=== PATIENT | female | born 1925 | race Caucasian/White ===

== ENCOUNTER 2016-11-08 11:59 | Emergency (ER) | payer OTHER, MEDICARE ==
[2016-11-08 12:26] VITALS: BMI 27.6
--- NOTE | 2016-11-08 13:29 | PDOC ---
History of Present Illness - General Chief Complaint: Edema Stated Complaint: PAIN/ HIP, KNEE Time Seen by Provider: 11/08/16 13:18 History Source: Patient, Family Exam Limitations: Dementia - History of Present Illness Initial Comments: CHIEF COMPLAINT: 89 y/o afebrile female with PMH HTN, dementia BIB family for leg swelling, weakness and change in mentation. HISTORY OF PRESENT ILLNESS: The patient's son states ever time the patient has an episode of dementia she seems to have trouble walking. He states since last night she has been more confused than normal and hasn't been walking. He also admits her legs are swollen despite increasing her lasix (PCP recommended a few days ago). The patient denies all pain. The son denies fever, cough, n/v/d, CP , SOB, orthopnea, abd pain. Vital signs on arrival are within normal limits. REVIEW OF SYSTEMS: (Provided by family) GENERAL/CONSTITUTIONAL: No fever/chills. + weakness. No weight change. HEAD, EYES, EARS, NOSE AND THROAT: No change in vision. No ear pain or discharge. No sore throat. CARDIOVASCULAR: No chest pain or shortness of breath. RESPIRATORY: No cough, wheezing, or hemoptysis. GASTROINTESTINAL: No abd pain, nausea, vomiting, diarrhea. GENITOURINARY: No dysuria, frequency, or change in urination. MUSCULOSKELETAL: +swelling to legs. No neck or back pain. SKIN: No rash or easy bruising. NEUROLOGIC: +more confused than normal. No headache, vertigo, loss of consciousness, or loss of sensation. PHYSICAL EXAM: GENERAL: The patient is awake, alert, and fully oriented, in no acute distress. She is well appearing. HEAD: Normal with no signs of trauma. ENT: Pupils equal, round and reactive to light, extraocular movements intact, sclera anicteric, conjunctiva clear. Neck supple. LUNGS: Clear to auscultation bilaterally. Normal excursion. No respiratory distress or use of accessory muscles. CV: RRR, S1/S2, no MRG. Cap refill < 2 sec. ABDOMEN: Soft, non-distended, non-tender even to deep palpation, no hepatomegaly or splenomegaly, no masses. EXTREMITIES: Normal range of motion. 1+ pitting edema left LE. NEUROLOGICAL: Normal speech. CN II-XII grossly intact. Gait not assessed in the ER. No facial drooping. No slurred speech. Equal straight leg raise against resistance. Pt can count backwards from 10 to 1 without difficulty. PSYCH: Normal mood, normal affect. SKIN: Warm, dry, normal turgor, no rashes or lesions noted. Past History - Past Medical History Allergies/Adverse Reactions: Allergies Allergy/AdvReac Type Severity Reaction Status Date / Time nabumetone [From Relafen] Allergy Intermediate Rash Verified 11/08/16 12:23 celecoxib [From Celebrex] Allergy Itching Verified 11/08/16 12:23 lisinopril [From Zestril] Allergy Rash Verified 11/08/16 12:23 Home Medications: Ambulatory Orders Clonidine HCl [Catapres -] 0.2 mg PO HS 01/26/12 Rivastigmine [Exelon] 1 each TD DAILY 02/26/13 Clonidine HCl [Catapres] 0.1 mg PO ASDIR 10/03/16 Memantine HCl [Namenda Xr] 28 mg PO DAILY 10/03/16 Clonidine HCl [Catapres -] 0.2 mg PO AM 11/08/16 Potassium Chloride 10 meq PO ASDIR 11/08/16 Quetiapine Fumarate [Seroquel -] 12.5 mg PO HS 11/08/16 Anemia: No Asthma: No Cancer: No Cardiac Disorders: No CVA: No COPD: No CHF: No Dementia: Yes Diabetes: No GI Disorders: Yes (CONSTIPATION) Disorders: No HTN: Yes Hypercholesterolemia: Yes (NO MEDICATION) Liver Disease: No Seizures: No Thyroid Disease: No - Surgical History Abdominal Surgery: No Appendectomy: No Cardiac Surgery: No Cholecystectomy: No Lung Surgery: No Neurologic Surgery: No Orthopedic Surgery: Yes (RIGHT HIP THR 2012) - Psycho/Social/Smoking Cessation Hx Anxiety: No Suicidal Ideation: No Smoking History: Former smoker Have you smoked in the past 12 months: No If you are a former smoker, when did you quit?: 60 YRS Information on smoking cessation initiated: No Hx Alcohol Use: No Drug/Substance Use Hx: No Substance Use Type: None Hx Substance Use Treatment: No *Physical Exam - Vital Signs Last Vital Signs Temp Pulse Resp BP Pulse Ox 98.4 F 85 20 106/62 97 11/08/16 12:18 11/08/16 12:18 11/08/16 12:18 11/08/16 12:18 11/08/16 12:18 ED Treatment Course - LABORATORY CBC & Chemistry Diagram: 11/08/16 13:31 11/08/16 13:31 Medical Decision Making - Medical Decision Making A/P: 89 y/o female BIB family for increased confusion and LE edema. Upon examination the patient does not appear confused. Her left LE has 1+ pitting edema but family admits the swelling is improved. Will work up for infection and CHF exacerbation. Plan is as follows: 1. Labs 2. CXR 3. UA/culture CXR IMPRESSION: No evidence of pneumonia, CHF, pneumothorax, pleural effusion. BNP [address] Car and discussed all labs and CXR. He is not concerned and is in agreement with discharge to home with follow up in his office this week. Informed the patient's family of the plan and they are amenable. *DC/Admit/Observation/Transfer Diagnosis at time of Disposition: Dementia, Edema of right lower extremity - Discharge Dispostion Disposition: HOME Condition at time of disposition: Good - Referrals Referrals: Lobo Rueda MD [Primary Care Provider] - Call tomorrow - Patient Instructions Printed Discharge Instructions: DI for Alzheimer's Disease, DI for Peripheral Edema, Unilateral, DI for Dependent Edema Additional Instructions: Discharge Instructions: -Please call Dr. Car tomorrow for prompt follow up in his office -Return to the ER with any worsening or concerning symptoms
[2016-11-08 13:53] LABS: BASOPHIL 0.4 % (0-2.0); EOSINOPHIL 1.2 % (0-4.5); MCH 30.2 pg (25.7-33.7); MCHC 33.1 g/dl (32.0-36.0); MEAN CELL VOLUME 91.1 fl (80-96); MEAN PLT VOLUME 8.4 fl (7.5-11.1); NEUTROPHILS 66.9 % (42.8-82.8); PLATELET COUNT 170 K/MM3 (134-434); RDW 13.4 % (11.6-15.6); WHITE BLOOD COUNT 6.4 K/mm3 (4.0-10.0)
[2016-11-08 14:23] LABS: ALBUMIN 3.9 g/dl (3.4-5.0); BILIRUBIN,TOTAL 0.6 mg/dL (0.2-1.0); CALCIUM 8.9 mg/dL (8.5-10.1); CREATININE 1.3 mg/dL (0.55-1.02); TOT PROT 7.1 g/dl (6.4-8.2)
[2016-11-08 14:25] LABS: TROPONIN I 0.02 ng/ml (0.00-0.05)
[2016-11-08 16:33] VITALS: BP 110/70; PULSE 68; TEMP 98.5
== END 2016-11-08 16:33 | disposition home or self-care (01) ==
LOC: JER 11:59
DX: F03.90 Unspecified dementia, unspecified severity, without behavioral disturbance, psychotic disturbance, mood disturbance, and anxiety (principal); R60.0 Localized edema; I10 Essential (primary) hypertension
CPT/HCPCS: 36415; 71020-TC; 80053; 82550; 82553; 83880; 84484; 85025; 99284-25

== ENCOUNTER → 2016-12-30 | Emergency (ER) | payer OTHER, MEDICARE ==
[~2016-12-30] MED LIST: ACETAMINOPHEN INJECTION 100 ML IVPB ONE; LORAZEPAM CARPU-JECT 2 MG/ML DISP.SYRIN ONE
[2016-12-30 21:32] VITALS: BP 149/89; PULSE 90; BMI 28.9
--- NOTE | 2016-12-30 23:08 | PDOC ---
History of Present Illness - General Chief Complaint: Altered Mental Status Stated Complaint: AMS/DEMENSION Time Seen by Provider: 12/30/16 22:08 History Source: Patient, Family Exam Limitations: Dementia - History of Present Illness Initial Comments: 12/30/16 23:03 89yo Female patient w/ hx Dementia, HTN presented to ED by family c/o altered mental status. Family states that patient was threatening to call brickmason supervisor because the heat in house was to high and family was cooking her. Family also states patient not eating and drinking as usual and that her "color is off." Patient had well visit with Dr. Davison PCP this past and reported "everything was good." Denies CP, Abd pain, n/v/d, fever, back pain, diff breathing, dysuria , hematuria, rectal bleeding, rash or any other complaints at this time. Timing/Duration: 4-6 hours, getting worse Severity: moderate Modifying Factors: worse with: cold therapy, eating, immobilization, medication , movement, rest, other Associated Symptoms: denies: denies symptoms, chest pain, cough, diaphoresis, fever/chills, headaches, loss of appetite, malaise, nausea/vomiting, rash, seizure, shortness of breath, syncope, weakness, other Past History - Travel Traveled outside of the country in the last 30 days: No Close contact w/someone who was outside of country & ill: No - Past Medical History Allergies/Adverse Reactions: Allergies Allergy/AdvReac Type Severity Reaction Status Date / Time nabumetone [From Relafen] Allergy Intermediate Rash Verified 12/30/16 21:32 celecoxib [From Celebrex] Allergy Itching Verified 12/30/16 21:32 lisinopril [From Zestril] Allergy Rash Verified 12/30/16 21:32 Home Medications: Ambulatory Orders Clonidine HCl [Catapres -] 0.2 mg PO HS 01/26/12 Rivastigmine [Exelon] 1 each TD DAILY 02/26/13 Clonidine HCl [Catapres] 0.1 mg PO ASDIR 10/03/16 Memantine HCl [Namenda Xr] 28 mg PO DAILY 10/03/16 Clonidine HCl [Catapres -] 0.2 mg PO AM 11/08/16 Potassium Chloride 10 meq PO ASDIR 11/08/16 Quetiapine Fumarate [Seroquel -] 12.5 mg PO HS 11/08/16 Anemia: No Asthma: No Cancer: No Cardiac Disorders: No CVA: No COPD: No CHF: No Dementia: No (FORGETFUL) Diabetes: No GI Disorders: Yes (CONSTIPATION) Disorders: No HTN: Yes Hypercholesterolemia: Yes (NO MEDICATION) Liver Disease: No Seizures: No Thyroid Disease: No - Surgical History Abdominal Surgery: No Appendectomy: No Cardiac Surgery: No Cholecystectomy: No Lung Surgery: No Neurologic Surgery: No Orthopedic Surgery: Yes (RIGHT HIP THR 2012) - Psycho/Social/Smoking Cessation Hx Anxiety: No Suicidal Ideation: No Smoking History: Never smoked Have you smoked in the past 12 months: No If you are a former smoker, when did you quit?: 60 YRS Hx Alcohol Use: No Drug/Substance Use Hx: No Substance Use Type: None Hx Substance Use Treatment: No Review of Systems - Review of Systems Able to Perform ROS?: No (Family) Is the patient limited Liberian proficient: No Constitutional: No: Chills, Fever, Malaise, Weakness HEENTM: Yes: Ear Pain. No: Blurred Vision, Double Vision, Nose Congestion, Throat Pain, Throat Swelling, Difficulty Swallowing Cardiac (ROS): No: Chest Pain, Lightheadedness, Palpitations, Syncope, Chest Tightness ABD/GI: Yes: Poor Appetite, Poor Fluid Intake. No: Blood Streaked Bowels, Constipated, Diarrhea, Nausea, Rectal Bleeding, Vomiting, Tarry Stools, Other : Yes: Incontinence. No: Burning, Dysuria, Discharge, Frequency, Flank Pain, Hematuria, Pain, Urgency Musculoskeletal: No: Back Pain, Muscle Pain, Muscle Weakness Integumentary: Yes: Change in Color. No: Bruising, Erythema, Rash, Sweating Neurological: No: Headache, Numbness, Paresthesia, Seizure, Tingling, Tremors, Weakness All Other Systems: Reviewed and Negative *Physical Exam - Vital Signs Last Vital Signs Temp Pulse Resp BP Pulse Ox 90 18 149/89 100 12/30/16 21:27 12/30/16 21:27 12/30/16 21:27 12/30/16 21:27 - Physical Exam General Appearance: Yes: Nourished, Appropriately Dressed. No: Apparent Distress, Mild Distress, Moderate Distress, Severe Distress HEENT: positive: EOMI, JAMES, Normal ENT Inspection, Normal Voice, Symmetrical, Pharynx Normal, Hearing Decreased. negative: TMs Normal (Rt w/ Cerumen impaction), Pharyngeal Erythema, Tonsillar Exudate, Tonsillar Erythema, Nasal Congestion, Rhinorrhea, Sinus Tenderness, Hearing Grossly Normal, TM Bulging, TM Dull, TM Erythema Neck: positive: Trachea midline, Supple. negative: Rigid, Stridor, Lymphadenopathy (R), Lymphadenopathy (L) Respiratory/Chest: positive: Lungs Clear, Normal Breath Sounds. negative: Chest Tender, Respiratory Distress, Accessory Muscle Use, Labored Respiration, Rapid RR Cardiovascular: positive: Regular Rhythm, Regular Rate. negative: Edema, JVD, Murmur Gastrointestinal/Abdominal: positive: Normal Bowel Sounds, Soft, Distended. negative: Guarding, Rebound, Tenderness Musculoskeletal: positive: Normal Inspection. negative: CVA Tenderness Extremity: positive: Normal Capillary Refill, Normal Inspection, Normal Range of Motion, Pedal Edema. negative: Cyanosis, Swelling Integumentary: positive: Dry, Warm, Pale. negative: Normal Color, Erythema, Petechiae, Rash, Swelling, Bruising Neurologic: positive: interpretive program coordinator II-XII NML intact, Alert, Normal Mood/Affect, Normal Response, Motor Strength 5/5. negative: Fully Oriented (Dementia) ED Treatment Course - LABORATORY CBC & Chemistry Diagram: 12/30/16 22:38 12/30/16 22:38 - RADIOLOGY Radiology Studies Ordered: Category Date Time Status HEAD CT WITHOUT CONTRAST [CT] Stat CT Scan 12/30/16 22:25 Ordered CHEST X-RAY PORTABLE* [RAD] Stat Radiology 12/30/16 22:25 Taken *DC/Admit/Observation/Transfer Diagnosis at time of Disposition: Dementia Qualifiers: Dementia type: unspecified type Dementia behavioral disturbance: with behavioral disturbance Qualified Code(s): F03.91 - Unspecified dementia with behavioral disturbance - Discharge Dispostion Disposition: HOME Condition at time of disposition: Improved Admit: No - Patient Instructions Printed Discharge Instructions: Dementia Additional Instructions: FOLLOW UP WITH YOUR DOCTOR. CALL TO SCHEDULE APPOINTMENT FOR NEXT WEEK. RETURN IF SYMPTOMS WORSEN OR ANY CONCERNS FOR FURTHER EVALUATION. ENCOURAGE FLUID INTAKE (WATER) EVERY 2 HOURS. Print Language: LITHUANIAN Progress Note - Progress Note Progress Note: Name: Erna Neff : 1925 Sex: F Study Date & Time: 12/30/201623:55:03 Description: HEAD CT WITHOUT CONTRAST Cashiers Supervisor: ([email or web address]) Begin of Report Content Referring Physician: Janessa Ospina Patient Name: Aishwarya Umanzor THIS IS A PRELIMINARYREPORT FROM [facility] EXAM: CT brain without contrast IMAGES: 80 EXAM DATE AND TIME: 2016-12-30 23:55:03.0 REASON FOR EXAM: Altered Mental status COMPARISON: No FINDINGS: Age-related involutional changes. No bleed. No mass. No visible acute infarct. THIS DOCUMENT HAS BEEN ELECTRONICALLY SIGNED Ceferino Neal MD 12/31/2016 00:11 MALIK MRadha. Please call [facility] [phone]) with questions. FAMILY WILL TAKE PATIENT HOME. ALL LABS AND TESTING WNL.
[2016-12-30 23:13] LABS: ALBUMIN 3.5 g/dl (3.4-5.0); BILIRUBIN,TOTAL 0.6 mg/dL (0.2-1.0); CALCIUM 8.7 mg/dL (8.5-10.1); CREATININE 1.3 mg/dL (0.55-1.02); TOT PROT 6.9 g/dl (6.4-8.2)
[2016-12-30 23:15] LABS: BASOPHIL 0.5 % (0-2.0); EOSINOPHIL 2.1 % (0-4.5); MCH 30.5 pg (25.7-33.7); MCHC 33.7 g/dl (32.0-36.0); MEAN CELL VOLUME 90.4 fl (80-96); NEUTROPHILS 63.7 % (42.8-82.8); PLATELET COUNT 168 K/MM3 (134-434); RDW 13.1 % (11.6-15.6); WHITE BLOOD COUNT 5.3 K/mm3 (4.0-10.0)
[2016-12-31] LABS: URINE APPEARANCE CLEAR; URINE BILIRUBIN NEGATIVE (NEGATIVE); URINE BLOOD NEGATIVE (NEGATIVE); URINE COLOR STRAW; URINE GLUCOSE (UA) NEGATIVE (NEGATIVE); URINE KETONE NEGATIVE (NEGATIVE); URINE LEUK ESTERASE NEGATIVE (NEGATIVE); URINE NITRITE NEGATIVE (NEGATIVE); URINE PROTEIN NEGATIVE (NEGATIVE); URINE UROBILINOGEN NEGATIVE E.U./dl (0.2-1.0)
== END | disposition home or self-care (01) ==
LOC: JER 21:23
DX: F03.91 Unspecified dementia, unspecified severity, with behavioral disturbance (principal); I10 Essential (primary) hypertension
CPT/HCPCS: 36415; 70450-TC; 71010-TC; 80053; 81003; 85025; 87086; 99281-25

== ENCOUNTER 2017-02-11 17:48 | Inpatient (IN) | payer OTHER, MEDICARE ==
[2017-02-11 17:51] VITALS: BMI 24.5
--- NOTE | 2017-02-11 18:19 | PDOC ---
History of Present Illness - General History Source: Family Exam Limitations: No Limitations - History of Present Illness Initial Comments: 89 F yo with h/o dementia and HTN brought in by family members s/p fall, fever and chills. It was unwitnessed and both patient and her family are unsure whether she hit her head. Per family she did become more confused which is off her baseline mental status. Family members also noticed fungal rash in her R inguinal area and bilateral swollen legs with warmth. Denies chest pain, sob, dizziness, abd pain, n/v, urinary and bowel symptoms. Associated Symptoms: reports: fever/chills <Lobo Hylton - Last Filed: 02/11/17 18:59> <Rashad Flores - Last Filed: 02/11/17 22:06> - General Chief Complaint: Injury Stated Complaint: FALL Time Seen by Provider: 02/11/17 18:18 Past History - Travel Traveled outside of the country in the last 30 days: No - Past Medical History Anemia: No Asthma: No Cancer: No Cardiac Disorders: No CVA: No COPD: No CHF: No Dementia: Yes Diabetes: No GI Disorders: Yes (CONSTIPATION) Disorders: No HTN: Yes Hypercholesterolemia: Yes Liver Disease: No Seizures: No Thyroid Disease: No - Surgical History Abdominal Surgery: No Appendectomy: No Cardiac Surgery: No Cholecystectomy: No Lung Surgery: No Neurologic Surgery: No Orthopedic Surgery: Yes (RIGHT HIP THR 2012) - Psycho/Social/Smoking Cessation Hx Anxiety: No Suicidal Ideation: No Smoking History: Never smoked Have you smoked in the past 12 months: No If you are a former smoker, when did you quit?: 60 YRS Hx Alcohol Use: No Drug/Substance Use Hx: No Substance Use Type: None Hx Substance Use Treatment: No <Lobo Hylton - Last Filed: 02/11/17 18:59> <Rashad Flores - Last Filed: 02/11/17 22:06> - Past Medical History Allergies/Adverse Reactions: Allergies Allergy/AdvReac Type Severity Reaction Status Date / Time nabumetone [From Relafen] Allergy Intermediate Rash Verified 12/30/16 21:32 celecoxib [From Celebrex] Allergy Itching Verified 12/30/16 21:32 lisinopril [From Zestril] Allergy Rash Verified 12/30/16 21:32 Home Medications: Ambulatory Orders Clonidine HCl [Catapres -] 0.2 mg PO HS 01/26/12 Rivastigmine [Exelon] 1 each TD DAILY 02/26/13 Memantine HCl [Namenda Xr] 28 mg PO DAILY 10/03/16 Clonidine HCl [Catapres -] 0.2 mg PO AM 11/08/16 Potassium Chloride 10 meq PO ASDIR 11/08/16 Quetiapine Fumarate [Seroquel -] 12.5 mg PO HS 11/08/16 Review of Systems - Review of Systems Able to Perform ROS?: No Is the patient limited Guatemalan proficient: No <Lobo Hylton - Last Filed: 02/11/17 18:59> *Physical Exam - Vital Signs Last Vital Signs Temp Pulse Resp BP Pulse Ox 98.7 F 106 H 18 164/91 98 02/11/17 17:49 02/11/17 17:49 02/11/17 17:49 02/11/17 17:49 02/11/17 17:49 - Physical Exam General Appearance: No: Apparent Distress HEENT: positive: Other (L eye cataract) Neck: positive: Trachea midline, Supple Respiratory/Chest: positive: Lungs Clear, Normal Breath Sounds Cardiovascular: positive: Regular Rate, S1, S2, Tachycardia Gastrointestinal/Abdominal: positive: Normal Bowel Sounds, Soft. negative: Tender Extremity: positive: Tender, Swelling, Erythema Integumentary: positive: Rash (R inguinal) Neurologic: positive: Confused (off baseline) <Lobo Hylton - Last Filed: 02/11/17 18:59> - Vital Signs Last Vital Signs Temp Pulse Resp BP Pulse Ox 102.7 F H 104 H 19 159/84 98 02/11/17 18:31 02/11/17 18:31 02/11/17 18:31 02/11/17 18:31 02/11/17 18:31 <Rashad Flores - Last Filed: 02/11/17 22:06> ED Treatment Course - LABORATORY CBC & Chemistry Diagram: 02/11/17 18:40 <Lobo Hylton - Last Filed: 02/11/17 18:59> - LABORATORY CBC & Chemistry Diagram: 02/11/17 18:40 02/11/17 21:40 - ADDITIONAL ORDERS Additional order review: Laboratory Results 02/11/17 02/11/17 02/11/17 21:40 18:40 18:29 Sodium 141 Potassium 3.6 Chloride 104 Carbon Dioxide 23 D Anion Gap 14 BUN 30 H Creatinine 1.2 H Creat Clearance w eGFR 42.30 Random Glucose 130 H D Lactic Acid 1.656 Calcium 8.7 Total Bilirubin 0.9 D AST 29 D ALT 29 D Alkaline Phosphatase 84 Creatine Kinase 514 H D Troponin I 0.06 H Total Protein 7.3 Albumin 3.5 Lipase 107 Urine Color Urine Appearance Urine pH Ur Specific [place] Urine Protein Urine Glucose (UA) Urine Ketones Urine Blood Urine Nitrite Urine Bilirubin Urine Urobilinogen Ur Leukocyte Esterase Urine RBC Urine WBC Ur Epithelial Cells Urine Bacteria Urine Mucus 02/11/17 18:29 Sodium Potassium Chloride Carbon Dioxide Anion Gap BUN Creatinine Creat Clearance w eGFR Random Glucose Lactic Acid Calcium Total Bilirubin AST ALT Alkaline Phosphatase Creatine Kinase Troponin I Total Protein Albumin Lipase Urine Color Yellow Urine Appearance Clear Urine pH 6.0 Ur Specific [place] 1.019 Urine Protein 2+ H Urine Glucose (UA) Negative Urine Ketones 1+ H Urine Blood 2+ H Urine Nitrite Negative Urine Bilirubin Negative Urine Urobilinogen Negative Ur Leukocyte Esterase Negative Urine RBC 3 Urine WBC 1 Ur Epithelial Cells Rare Urine Bacteria Rare Urine Mucus Rare 02/11/17 18:40 RBC 4.65 MCV 89.2 MCHC 32.9 RDW 13.7 MPV 8.3 Neutrophils % 89.4 H D Lymphocytes % 4.8 L D Monocytes % 5.6 Eosinophils % 0.0 D Basophils % 0.2 - RADIOLOGY Radiology Studies Ordered: Category Date Time Status CERVICAL SPINE CT W/O CONTR [CT] Stat CT Scan 02/11/17 18:[address] W/O CONTRAST [CT] Stat CT Scan 02/11/17 18:[address] WITHOUT CONTRAST [CT] Stat CT Scan 02/11/17 18:50 Taken HIP & PELVIS-RIGHT [RAD] Stat Radiology 02/11/17 19:25 Taken KNEE 2 POS-RIGHT [RAD] Stat Radiology 02/11/17 19:25 Taken - Medications Given in the ED: ED Medications Discontinued Medications Generic Name Dose Route Start Last Admin Trade Name Freq PRN Reason Stop Dose Admin Acetaminophen 870 mg 02/11/17 18:51 02/11/17 18:54 Ofirmev Injection - IVPB 02/11/17 18:52 870 mg ONCE ONE Administration <Sandra,Rashad - Last Filed: 02/11/17 22:06> Medical Decision Making - Medical Decision Making 02/11/17 19:07 Will perform sepsis workup and obtain CT head without contrast due to unwitnessed fall <Lobo Hylton - Last Filed: 02/11/17 18:59> - Medical Decision Making 02/11/17 22:05 <Rashad Flores - Last Filed: 02/11/17 22:06> *DC/Admit/Observation/Transfer <Lobo Hylton - Last Filed: 02/11/17 18:59> - Discharge Dispostion Admit: Yes <Rashad Flores - Last Filed: 02/11/17 22:06> Diagnosis at time of Disposition: Acute electrocardiogram changes Dementia Qualifiers: Dementia type: Alzheimer's disease Alzheimer's disease onset: unspecified onset Dementia behavioral disturbance: with behavioral disturbance Qualified Code(s): G30.8 - Other Alzheimer's disease; F02.81 - Dementia in other diseases classified elsewhere with behavioral disturbance Sepsis Qualifiers: Sepsis type: sepsis due to unspecified organism Qualified Code(s): A41.9 - Sepsis, unspecified organism Fall Qualifiers: Encounter type: sequela Qualified Code(s): W19.XXXS - Unspecified fall, sequela - Discharge Dispostion Condition at time of disposition: Stable
[2017-02-11] MEDS ORDERED: ACETAMINOPHEN 1000 MG/100 ML VIAL (NON FORMULARY) IVPB ONE (18:51)
--- NOTE | 2017-02-11 18:51 | PDOC ---
Attending Attestation - Resident Resident Name: Lobo Hylton - ED Attending Attestation I have performed the following: I have examined & evaluated the patient, The case was reviewed & discussed with the resident, I agree w/resident's findings & plan - HPI HPI: 02/11/17 18:49 89y hx of htn, dementia presents s/p unwitnessed fall, also hx of fever. The pt was ambulating and fell, the daugther was beside the pt immediately and saw the pt was awake, no LOC, n/v. The family notes the pt felt a bit warm when the went to pick her up and the pt seem alitlte altered - asing repititive questions that she doesnt normally do. On exam the pt deneis any complaint including headache, dizziness, neck pain back pain, abd pain, cp, sob, n/v. She has no focal tenderness to anywhere on head/neck/back/torso/extremities but pt has mild pain to the R leg when i put it down after ranging it. + contusion to the L face/scalp without focal bony tenderness or crepitus. will obtain imgaing of knee/hip of R leg ct head/cspine/facialb ones sepssi workup for infectious source. +fungal rash in inguinal folds +b/l LE edema 02/11/17 19:25 02/11/17 19:26 02/11/17 22:03 labs reviewed noted for leukocytosis trop neg, but not neg - will bear repeating ua inconsistent of UTI cxr does not reveal pna will admit for further management due to new ekg changes case dw PMD agreed with observation stable for tele Case discussed in detail with admitting physician including history, physical exam and ancillary studies. Admitting physician has assumed care for the patient, will follow all pending diagnostics and will complete the evaluation and treatment. - Physicial Exam PE: 02/13/17 20:21 see above - Medical Decision Making 02/13/17 20:21 see above Heart Score/ECG Review - ECG Impressions Comment:: 02/11/17 19:42 Twelve-lead EKG was performed and reviewed by me. There is normal sinus rhythm with a rate of 101 Left axis deviation Left bundle-branch block LBBB is new when compared with ekg dated 10/03/2016
[2017-02-11 18:58] LABS: BASOPHIL 0.2 % (0-2.0); MCH 29.3 pg (25.7-33.7); MCHC 32.9 g/dl (32.0-36.0); MEAN CELL VOLUME 89.2 fl (80-96); MEAN PLT VOLUME 8.3 fl (7.5-11.1); NEUTROPHILS 89.4 % (42.8-82.8); PLATELET COUNT 170 K/MM3 (134-434); RDW 13.7 % (11.6-15.6); WHITE BLOOD COUNT 13.2 K/mm3 (4.0-10.0)
[2017-02-11 18:59] LABS: URINE APPEARANCE CLEAR; URINE BILIRUBIN NEGATIVE (NEGATIVE); URINE COLOR YELLOW; URINE GLUCOSE (UA) NEGATIVE (NEGATIVE); URINE KETONE 1+ (NEGATIVE); URINE LEUK ESTERASE NEGATIVE (NEGATIVE); URINE NITRITE NEGATIVE (NEGATIVE); URINE UROBILINOGEN NEGATIVE E.U./dl (0.2-1.0)
[2017-02-11 19:01] LABS: URINE BLOOD 2+ (NEGATIVE); URINE PROTEIN 2+ (NEGATIVE)
[2017-02-11 19:10] LABS: URINE BACTERIA RARE /hpf (NONE SEEN); URINE MUCUS RARE; URINE RBC 3 /hpf (0-3); URINE WBC 1 /hpf (3-5)
[2017-02-11 21:57] LABS: ALBUMIN 3.5 g/dl (3.4-5.0); BILIRUBIN,TOTAL 0.9 mg/dL (0.2-1.0); CALCIUM 8.7 mg/dL (8.5-10.1); COCKROFT - GAULT 29.58; CREATININE 1.2 mg/dL (0.55-1.02); TOT PROT 7.3 g/dl (6.4-8.2)
[2017-02-11 21:59] LABS: TROPONIN I 0.06 ng/ml (0.00-0.05)
[2017-02-11] MEDS ORDERED: LEVOFLOXACIN 500 MG IVPB 100 ML IVPB ONE ×2 (22:03→22:35)
[2017-02-12] MEDS ORDERED: LORAZEPAM CARPU-JECT 2 MG/ML DISP.SYRIN IVPUSH ONE ×2 (00:13→17:25)
[2017-02-12 06:11] LABS: BASOPHIL 0.2 % (0-2.0); MCH 29.6 pg (25.7-33.7); MEAN CELL VOLUME 89.6 fl (80-96); MEAN PLT VOLUME 8.6 fl (7.5-11.1); NEUTROPHILS 86.2 % (42.8-82.8); PLATELET COUNT 157 K/MM3 (134-434); RDW 13.7 % (11.6-15.6); WHITE BLOOD COUNT 11.9 K/mm3 (4.0-10.0)
[2017-02-12 06:34] LABS: ALBUMIN 3.1 g/dl (3.4-5.0); CALCIUM 8.4 mg/dL (8.5-10.1); COCKROFT - GAULT 29.58; CREATININE 1.2 mg/dL (0.55-1.02); TOT PROT 6.7 g/dl (6.4-8.2)
[2017-02-12 06:46] LABS: TROPONIN I 0.11 ng/ml (0.00-0.05)
--- NOTE | 2017-02-12 09:44 | CON.CARD ---
Consult Consult Specialty:: CARDIO Referred by:: margarito Reason for Consultation:: fall - History of Present Illness Chief Complaint: same History of Present Illness: 89 yo female here s/p fall. pt with dementia. per ER notes: s/p unwitnessed fall, also hx of fever. was ambulating and fell, the daughter was beside the pt immediately and saw the pt was awake, no LOC, n/v. The family notes the pt felt a bit warm when the went to pick her up and the pt seem slightly altered vs baseline - asking repititive questions that she doesnt normally do. To ER doctor, pt denied any headache, dizziness, neck pain back pain, abd pain, cp, sob, n/v. + contusion to the L face/scalp. 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 Cardio/Vascular: Yes: HTN Psych: Yes: Other (dementia) Musculoskeletal: Yes: Osteoarthritis - Past Surgical History Past Surgical History: Yes: Hysterectomy, Joint Replacement (bilateral hip rreplacement) - Alcohol/Substance Use Hx Alcohol Use: No History of Substance Use: reports: None - Smoking History Smoking history: Never smoked Have you smoked in the past 12 months: No If you are a former smoker, when did you quit?: 60 YRS - Social History ADL: Independent History of Recent Travel: No Home Medications - Allergies Allergies/Adverse Reactions: Allergies Allergy/AdvReac Type Severity Reaction Status Date / Time nabumetone [From Relafen] Allergy Intermediate Rash Verified 12/30/16 21:32 celecoxib [From Celebrex] Allergy Itching Verified 12/30/16 21:32 lisinopril [From Zestril] Allergy Rash Verified 12/30/16 21:32 - Home Medications Home Medications: Ambulatory Orders Clonidine HCl [Catapres -] 0.2 mg PO HS 01/26/12 Rivastigmine [Exelon] 1 each TD DAILY 02/26/13 Memantine HCl [Namenda Xr] 28 mg PO DAILY 10/03/16 Clonidine HCl [Catapres -] 0.2 mg PO AM 11/08/16 Potassium Chloride 10 meq PO ASDIR 11/08/16 Quetiapine Fumarate [Seroquel -] 12.5 mg PO HS 11/08/16 Vital Signs: Vital Signs Temperature 97.3 F L 02/12/17 05:31 Pulse Rate 88 02/12/17 07:13 Respiratory Rate 18 02/12/17 07:13 Blood Pressure 143/75 02/12/17 07:13 O2 Sat by Pulse Oximetry (%) 96 02/12/17 07:13 - Other Data Labs, Other Data: CBC, BMP 02/12/17 06:00 02/12/17 06:00 Troponin, BNP 02/12/17 06:00 Troponin I 0.11 H Troponin, BNP 02/12/17 06:00 Troponin I 0.11 H Laboratory Tests 02/11/17 02/12/17 02/12/17 21:40 06:00 06:00 WBC 11.9 H Hgb 12.9 Plt Count 157 Sodium 142 Potassium 3.4 L BUN 29 H Creatinine 1.2 H AST 58 H D ALT 33 Creatine Kinase 514 H D 1602 H D CK-MB (CK-2) 2.270 Troponin I 0.06 H 0.11 H ekg: NSR, LBBB = new vs 09/2016 Imaging - Results Chest X-ray: Report Reviewed (clear lungs/pleura) Assessment/Plan Echo 09/2016 (): nl LVEF, normal wall motion; nl RV; valves WNL Carotids 09/20: mild, nonob da s/p unwitnessed fall: -apparently dtr arrived at pt's side immediately--was not unconscious at that time and no suspected LOC by family (per ER notes), though pt dementia confounding here -cannot definitively r/o fleeting syncope -more likely sec to weakness or acute balance deficit related to active infection -if brief syncope, was almost certainly vasovagal or orthostatic related to fever/infection, vol depleted (prerenal labs) -IVF -check orthostatics later, once optimized medically--see below -skeletal muscle cpk sec to fall (normal MB fraction); trop intermediate range ( 0.06-->0.11) which is not c/w ACS unless suspicious clinical presentation -new LBBB noted on ecg: likely age-related conduction system disease--if related to acute myocardial ischemia/injury, would be large proportion of anterior wall and would expect much higher troponin -f/u serial enzymes -check echo (normal EF and wall motion 09/20 here) -given advanced age, dementia, and current fever, any tx would likely be medical mgmt only in any event -telemetry x 24 hours fever (102.7): -ID w/u per dr pimentel HTN: -bp reasonably controlled -cont home meds for now -rec assess for orthostatic hypotension later, once infection/fever resolved, when pt starting to ambulate again dementia: -per dr pimentel
[2017-02-12] MEDS ORDERED: cloNIDine HCL 0.1 MG TABLET ONE (10:35)
[2017-02-12] MEDS ORDERED: FUROSEMIDE 40 MG TABLET (FP) ONE (10:35)
[2017-02-12] MEDS: cloNIDine HCL 0.1 MG TABLET PO SCH ×2 (10:40→22:35)
[2017-02-12] MEDS: FUROSEMIDE 20 MG TABLET (FP) PO SCH (10:40)
--- NOTE | 2017-02-12 11:25 | EKG ---
Test Reason : Blood Pressure : / mmHG Vent. Rate : 101 BPM Atrial Rate : 101 BPM P-R Int : 182 ms QRS Dur : 132 ms QT Int : 404 ms P-R-T Axes : 069 -50 107 degrees QTc Int : 523 ms SINUS TACHYCARDIA POSSIBLE LEFT ATRIAL ENLARGEMENT LEFT AXIS DEVIATION LEFT BUNDLE BRANCH BLOCK ABNORMAL ECG WHEN COMPARED WITH ECG OF 03-OCT-2016 05:39, [place] INTERVAL HAS DECREASED LEFT BUNDLE BRANCH BLOCK IS NOW PRESENT Confirmed by HERLINDA CASTRO MD ([id number]) on 02/12/2017 11:24:51 AM Referred By: Confirmed By:HERLINDA CASTRO MD
[2017-02-12] MEDS: MEMANTINE HCL 5 MG TABLET (UD) PO SCH ×2 (11:45→22:35)
[2017-02-12] MEDS ORDERED: QUEtiapine FUMARATE 25 MG TABLET (FP) PO ONE (14:29)
[2017-02-12 16:04] LABS: TROPONIN I 0.07 ng/ml (0.00-0.05)
[2017-02-12] MEDS: QUEtiapine FUMARATE 25 MG TABLET (FP) PO SCH (22:35)
--- NOTE | 2017-02-12 23:15 | HP ---
Admitting History and Physical - Primary Care Physician PCP: Lobo Rueda - Admission Chief Complaint: Episode of a fall without LOC. Fever History of Present Illness: Family noted change in mental status for couple of days.This AM fell and found on the floor by family members and feel there was no LOC. Patient denies any pain, headache, chest pain or SOB.They also noted that she felt warm suggestive of fever. She was brought to ED and was alert but had fever. Xrays of neck, pelvis hips, CT of Brain all negative. 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 Cardiovascular: Yes: HTN Psych: Yes: Other (dementia) Musculoskeletal: Yes: Osteoarthritis - Past Surgical History Past Surgical History: Yes: Hysterectomy, Joint Replacement (bilateral hip rreplacement) - Smoking History Smoking history: Never smoked Have you smoked in the past 12 months: No If you are a former smoker, when did you quit?: 60 YRS - Alcohol/Substance Use Hx Alcohol Use: No History of Substance Use: reports: None - Social History ADL: Independent History of Recent Travel: No Home Medications - Allergies Allergies/Adverse Reactions: Allergies Allergy/AdvReac Type Severity Reaction Status Date / Time nabumetone [From Relafen] Allergy Intermediate Rash Verified 12/30/16 21:32 celecoxib [From Celebrex] Allergy Itching Verified 12/30/16 21:32 lisinopril [From Zestril] Allergy Rash Verified 12/30/16 21:32 - Home Medications Home Medications: Ambulatory Orders Clonidine HCl [Catapres -] 0.2 mg PO HS 01/26/12 Rivastigmine [Exelon] 1 each TD DAILY 02/26/13 Memantine HCl [Namenda Xr] 28 mg PO DAILY 10/03/16 Clonidine HCl [Catapres -] 0.2 mg PO AM 11/08/16 Potassium Chloride 10 meq PO ASDIR 11/08/16 Quetiapine Fumarate [Seroquel -] 12.5 mg PO HS 11/08/16 Review of Systems - Review of Systems Constitutional: reports: Fever Eyes: reports: No Symptoms HENT: reports: No Symptoms Neck: reports: No Symptoms Cardiovascular: reports: No Symptoms Respiratory: denies: No Symptoms, Cough, Exercise Intolerance, Hemoptysis, Orthopnea, PND, Snoring, SOB, SOB on Exertion, Wheezing, Other Gastrointestinal: reports: No Symptoms Genitourinary: reports: No Symptoms Musculoskeletal: denies: No Symptoms, Back Pain, Crepitus, Decreased ROM, Extremity Pain, Joint Pain, Joint Swelling, Muscle Pain, Muscle Cramps, Muscle Weakness, Other Integumentary: reports: Other (redness of skin of both legs L > R which affects lower third) Neurological: reports: Change in LOC, Weakness Endocrine: reports: No Symptoms Physical Examination Vital Signs: Vital Signs Temperature 98.3 F 02/12/17 22:45 Pulse Rate 107 H 02/12/17 22:45 Respiratory Rate 20 02/12/17 22:45 Blood Pressure 155/90 02/12/17 22:45 O2 Sat by Pulse Oximetry (%) 96 02/12/17 18:40 Constitutional: Yes: Well Nourished, No Distress, Calm Eyes: Yes: Conjunctiva Clear, EOM Intact HENT: Yes: WNL Neck: Yes: Decreased ROM Cardiovascular: Yes: Regular Rate and Rhythm, S1, S2 Respiratory: Yes: Regular, CTA Bilaterally Gastrointestinal: Yes: Normal Bowel Sounds, Soft Renal/: Yes: WNL Breast(s): Yes: WNL Musculoskeletal: Yes: Back Pain Extremities: Yes: WNL Edema: No Peripheral Pulses WNL: Yes Integumentary: Yes: WNL Neurological: Yes: Alert, Confusion ...Motor Strength: WNL Psychiatric: Yes: WNL, Alert, Oriented, Agitated Labs: CBC, BMP 02/12/17 06:00 02/12/17 06:00 Imaging - Results X-ray: Report Reviewed EKG: Report Reviewed, Image Reviewed Problem List - Problems (1) Dementia Assessment/Plan: agitated off and on controlled with Seroquel Code(s): F03.90 - UNSPECIFIED DEMENTIA WITHOUT BEHAVIORAL DISTURBANCE Qualifiers: Dementia type: Alzheimer's disease Alzheimer's disease onset: unspecified onset Dementia behavioral disturbance: with behavioral disturbance Qualified Code(s): G30.8 - Other Alzheimer's disease; F02.80 - Dementia in other diseases classified elsewhere without behavioral disturbance (2) Fall Assessment/Plan: Difficult to say reason for the fall but postural hypotension to be checked Code(s): W19.XXXA - UNSPECIFIED FALL, INITIAL ENCOUNTER Qualifiers: Encounter type: sequela Qualified Code(s): W19.XXXS - Unspecified fall , sequela (3) Sepsis Assessment/Plan: Aetiology of fever and leukocytosis, await cultures Code(s): A41.9 - SEPSIS, UNSPECIFIED ORGANISM Qualifiers: Sepsis type: sepsis due to unspecified organism Qualified Code(s): A41.9 - Sepsis, unspecified organism (4) Altered mental status Code(s): R41.82 - ALTERED MENTAL STATUS, UNSPECIFIED Qualifiers: Altered mental status type: unspecified Qualified Code(s): R41.82 - Altered mental status, unspecified (5) Edema of right lower extremity Code(s): R60.0 - LOCALIZED EDEMA Assessment/Plan Although LBBB is new as discussed by probably age related and not due to recent infarction, will be monitored. If cultures are negative will d/c abcs. To start PT for ambulation.
[2017-02-13] MEDS: QUEtiapine FUMARATE 25 MG TABLET (FP) PO SCH ×2 (11:01→21:35)
[2017-02-13] MEDS: FUROSEMIDE 20 MG TABLET (FP) PO SCH (11:03)
[2017-02-13] MEDS: cloNIDine HCL 0.1 MG TABLET PO SCH ×2 (11:03→21:26)
[2017-02-13] MEDS: MEMANTINE HCL 5 MG TABLET (UD) PO SCH ×2 (11:03→21:26)
--- NOTE | 2017-02-13 11:48 | PN ---
Progress Note (short form) - Note Progress Note: CC: fall, lbbb S: + weakness, no cp, palps, dizziness, sob Current Medications Clonidine (Catapres -) 0.[address] [facility] Last Admin: 02/13/17 11:03 Dose: 0.1 mg Furosemide (Lasix -) [address] [facility] Last Admin: 02/13/17 11:03 Dose: 20 mg Memantine (Namenda -) [address] [facility] Last Admin: 02/13/17 11:03 Dose: 5 mg Quetiapine Fumarate (Seroquel -) 12.[address] [facility] Last Admin: 02/12/17 22:35 Dose: 12.5 mg Vital Signs - 24 hr 02/12/17 02/12/17 02/12/17 14:40 18:40 19:00 Temperature 98.7 F 98.9 F Pulse Rate 108 H Pulse Rate [ 116 H 118 H Radial] Respiratory 19 19 Rate Blood Pressure 142/88 Blood Pressure 157/86 144/112 [Right Arm] O2 Sat by Pulse 98 96 Oximetry (%) 02/12/17 02/12/17 02/13/17 22:45 23:50 02:00 Temperature 98.3 F 98.7 F 99.3 F Pulse Rate 107 H 97 H 93 H Pulse Rate [ Radial] Respiratory 20 18 20 Rate Blood Pressure 155/90 142/87 146/81 Blood Pressure [Right Arm] O2 Sat by Pulse Oximetry (%) 02/13/17 02/13/17 06:00 10:00 Temperature 98.9 F 98.2 F Pulse Rate 109 H 102 H Pulse Rate [ Radial] Respiratory 20 16 Rate Blood Pressure 135/74 158/96 Blood Pressure [Right Arm] O2 Sat by Pulse Oximetry (%) Intake & Output 02/11/17 02/12/17 02/13/17 02/14/17 07:59 07:59 07:59 07:59 Weight 130 lb 130 lb NAD, calm JVD flat, neck supple CTAB, nl effort rrr nl s1, s2 no mrg + bs soft nt nd ext without e/c/c aaox2 no carotid bruit no jaundice, diaphoresis. No labs today ekg: NSR, LBBB = new vs 09/2016 tele: intermittent accelerated junctional rhythm vs SVT with rate related bundle., intermittent svt. Imaging - Results Chest X-ray: Report, images Reviewed (clear lungs/pleura) Assessment/Plan Echo here: nl lv/rv. 1 + MAC Echo 09/2016 ([facility]): nl LVEF, normal wall motion; nl RV; valves WNL Carotids 09/20: mild, nonob da 89 yo with h/o HTN, dementia, OA, here s/p fall. s/p unwitnessed fall: -apparently dtr arrived at pt's side immediately--was not unconscious at that time and no suspected LOC by family (per ER notes), though pt dementia confounding here -cannot definitively r/o fleeting syncope -more likely sec to weakness or acute balance deficit related to active infection -if brief syncope, was almost certainly vasovagal or orthostatic related to fever/infection, vol depleted (prerenal labs) -IVF prn -check orthostatics, once optimized medically--see below -skeletal muscle cpk sec to fall (normal MB fraction); trop intermediate range ( 0.06-->0.11) which is not c/w ACS unless suspicious clinical presentation -new LBBB noted on ecg: with either intermittent accelerated junctional rhythm vs SVT with rate related bundle. Con't to monitor. No bmp today. Would get daily bmp and monitor lytes. Would hold lasix for now with rising ck. can give IVF if needed. -telemetry x 24 hours fever (102.7): -ID w/u per dr pimentel - will hold lasix HTN: -bp reasonably controlled -cont home meds for now -rec assess for orthostatic hypotension later, once infection/fever resolved, when pt starting to ambulate again dementia: -per dr pimentel
--- NOTE | 2017-02-13 14:15 | PN ---
Progress Note (short form) - Note Progress Note: ID Consult dictated 89 year old female admitted s/p fall, confusion. Noted to have fever 102.7. Workup negative. Presently afebrile Observe off antibiotics
--- NOTE | 2017-02-13 15:04 | CONS ---
DATE OF CONSULTATION: DATE OF DICTATION: 02/13/2017 The patient is an 89-year-old female who is evaluated for fever. She was admitted to the hospital on February 11, 2017, after a mechanical fall at home. Family had reported that she had also been slightly confused. On admission, she was found to have a fever of 102.7. Cultures were obtained and she was empirically treated with Levaquin. CAT scan of the head and neck was negative for any traumatic injury, as were hip and knee and facial bone x-rays. Her course was significant for clinical improvement, with improvement in her mental status. She has been afebrile. White blood cell count is almost normal. Cultures have been negative. At the present time she is awake and alert. She offers no complaints. She denies any high-grade fever, shaking chills. No chest pain, shortness of breath, cough, sputum production. No dysuria or hematuria. No vomiting or diarrhea. PAST MEDICAL HISTORY: Positive for dementia and hypertension. PAST SURGICAL HISTORY: Status post bilateral total hip replacements and hysterectomy. ALLERGIES: CELEBREX, LISINOPRIL, and NABUMETONE. SOCIAL HISTORY: Lives at home with family members. Nonsmoker, nondrinker. REVIEW OF SYSTEMS: Neurologic: No loss of consciousness, seizure activity, focal weakness. Cardiac: Negative chest pain or palpitations. Respiratory: Negative cough or sputum production. Gastrointestinal: Negative for vomiting or diarrhea. Genitourinary: Negative for urinary tract infection. LABORATORY DATA: White count on admission 13.2, presently 11.9. Hematocrit 39.2, platelet count 157. BUN 29, creatinine 1.2. Urinalysis: One white count. Flu swab negative. Blood cultures negative. Chest x-ray negative for infiltrate. PHYSICAL EXAMINATION: General: She is awake and alert. She is in no acute distress. Vital Signs: Temperature 98.2, T-max 102.7. Blood pressure 114/74, pulse 96, regular. Respirations 16 per minute. HEENT: Sclerae are anicteric. Cardiovascular: Heart sounds S1, S2. Lungs: Clear bilaterally. No rhonchi, rales, or wheezing. Abdomen: Soft. No tenderness elicited. No suprapubic or flank tenderness. Extremities: Positive for chronic venous stasis dermatitis. No edema. IMPRESSION: An 89-year-old female admitted status post mechanical fall and confusion, noted to have fever 102.7. Presently afebrile. Sepsis workup negative. Observe off antibiotic therapy. No clear infectious source for temperature elevation and recent altered mentation. Case discussed with patient with family member present at the time of the examination. Thank you for the kind referral. ANIL JUARES M.D. [id number]
--- NOTE | 2017-02-13 21:30 | PN ---
Progress Note, Physician History of Present Illness: Denies any chest pain or SOB. Denies any pain in joints, back or ribs. Appetite is good - Current Medication List Current Medications: Active Medications Clonidine (Catapres -) 0.1 mg PO BID [facility] Last Admin: 02/13/17 11:03 Dose: 0.1 mg Furosemide (Lasix -) 20 mg PO DAILY [facility] Last Admin: 02/13/17 11:03 Dose: 20 mg Memantine (Namenda -) 5 mg PO BID [facility] Last Admin: 02/13/17 11:03 Dose: 5 mg Quetiapine Fumarate (Seroquel -) 12.5 mg PO BID [facility] Last Admin: 02/13/17 11:01 Dose: 12.5 mg - Objective Vital Signs: Vital Signs Temperature 98.7 F 02/13/17 17:00 Pulse Rate 87 02/13/17 17:00 Respiratory Rate 20 02/13/17 17:00 Blood Pressure 122/72 02/13/17 17:00 O2 Sat by Pulse Oximetry (%) 94 L 02/13/17 09:00 Constitutional: Yes: Well Nourished, No Distress, Calm Eyes: Yes: Conjunctiva Clear, EOM Intact HENT: Yes: WNL Neck: Yes: Supple Cardiovascular: Yes: Regular Rate and Rhythm, S1, S2 Respiratory: Yes: Regular, CTA Bilaterally Gastrointestinal: Yes: Normal Bowel Sounds, Soft Genitourinary: Yes: WNL Musculoskeletal: Yes: WNL Extremities: Yes: WNL Edema: No Peripheral Pulses WNL: Yes Integumentary: Yes: WNL Neurological: Yes: Alert, Oriented ...Motor Strength: WNL Psychiatric: Yes: Alert, Oriented Labs: CBC, BMP 02/12/17 06:00 02/12/17 06:00 Problem List - Problems (1) Dementia Assessment/Plan: Continues to show much improvement with Seroquel Code(s): F03.90 - UNSPECIFIED DEMENTIA WITHOUT BEHAVIORAL DISTURBANCE Qualifiers: Dementia type: unspecified type Dementia behavioral disturbance: without behavioral disturbance Qualified Code(s): F03.90 - Unspecified dementia without behavioral disturbance (2) Fall Code(s): W19.XXXA - UNSPECIFIED FALL, INITIAL ENCOUNTER Qualifiers: Encounter type: sequela Qualified Code(s): W19.XXXS - Unspecified fall , sequela (3) Altered mental status Assessment/Plan: Since admission mental status has improved , being more alert and oriented. Known case of dementia being followed by neurologist Code(s): R41.82 - ALTERED MENTAL STATUS, UNSPECIFIED Qualifiers: Altered mental status type: unspecified Qualified Code(s): R41.82 - Altered mental status, unspecified (4) Edema of right lower extremity Code(s): R60.0 - LOCALIZED EDEMA (5) Hyperlipidemia Code(s): E78.5 - HYPERLIPIDEMIA, UNSPECIFIED (6) Hypertension Code(s): I10 - ESSENTIAL (PRIMARY) HYPERTENSION (7) Left bundle branch block (LBBB) Code(s): I44.7 - LEFT BUNDLE-BRANCH BLOCK, UNSPECIFIED (8) Osteoarthritis Code(s): M19.90 - UNSPECIFIED OSTEOARTHRITIS, UNSPECIFIED SITE (9) Fever Assessment/Plan: All blood cultures were negative and leukocytosis subsided. Patient became afebrile.Exact etiology not known Code(s): R50.9 - FEVER, UNSPECIFIED Assessment/Plan Will start PT for ambulation and if she continues stable will discharge home as she has a 24 aide.
[2017-02-14 09:56] LABS: CALCIUM 8.6 mg/dL (8.5-10.1); COCKROFT - GAULT 29.58; CREATININE 1.2 mg/dL (0.55-1.02); MAGNESIUM 2.3 mg/dL (1.8-2.4)
[2017-02-14] MEDS: cloNIDine HCL 0.1 MG TABLET PO SCH (10:47)
[2017-02-14] MEDS: MEMANTINE HCL 5 MG TABLET (UD) PO SCH ×2 (10:49→21:58)
[2017-02-14] MEDS: QUEtiapine FUMARATE 25 MG TABLET (FP) PO SCH ×2 (10:49→21:58)
--- NOTE | 2017-02-14 11:04 | PN ---
Progress Note (short form) - Note Progress Note: S: no cp sob palps dizzy; overall no complaints o: Vital Signs Period Temp Pulse Resp BP Sys/Rogel Pulse Ox Last 24 Hr 98.0 F-99.6 F 87-109 16-20 97-122/57-74 97 NAD, calm JVD flat, neck supple CTAB, nl effort rrr nl s1, s2 no mrg + bs soft nt nd ext without e/c/c aaox2 no jaundice, diaphoresis. Current Medications Generic Name Dose Route Start Last Admin Trade Name Freirma PRN Reason Stop Dose Admin Memantine 5 mg 02/12/17 10:00 02/14/17 10:49 Namenda - PO 5 mg BID [facility] Administration Quetiapine Fumarate 12.5 mg 02/12/17 22:00 02/14/17 10:49 Seroquel - PO 12.5 mg BID [facility] Administration CBC, BMP 02/12/17 06:00 02/14/17 08:38 ekg: NSR, LBBB = new vs 09/2016 tele: sr, sinus tach with rate related bundle brunch block Echo here: nl lv/rv. 1 + MAC Echo 09/2016 ([facility]): nl LVEF, normal wall motion; nl RV; valves WNL Carotids 09/20: mild, nonob da a/p: 89 yo with h/o HTN, dementia, OA, here s/p fall. s/p unwitnessed fall: -apparently dtr arrived at pt's side immediately--was not unconscious at that time and no suspected LOC by family (per ER notes), though pt dementia confounding here -cannot definitively r/o fleeting syncope -more likely sec to weakness or acute balance deficit related to active infection -if brief syncope, was almost certainly vasovagal or orthostatic related to fever/infection, vol depleted (prerenal labs) -IVF prn -check orthostatics, once optimized medically -skeletal muscle cpk sec to fall (normal MB fraction); trop intermediate range ( 0.06-->0.11) which is not c/w ACS -new LBBB noted on ecg: with either intermittent accelerated junctional rhythm vs SVT with rate related bundle. -echo and ecg w/o etiology of fall/syncope fever (102.7): -ID w/u per dr pimentel -holding lasix HTN: -controlled -cont home meds for now -rec assess for orthostatic hypotension later, once infection/fever resolved, when pt starting to ambulate again
--- NOTE | 2017-02-14 22:39 | PN ---
Progress Note, Physician History of Present Illness: Denies any CP, SOB, PND. BP went to 97 and Clonidine was D/C. - Current Medication List Current Medications: Active Medications Memantine (Namenda -) 5 mg PO BID [facility] Last Admin: 02/14/17 21:58 Dose: 5 mg Quetiapine Fumarate (Seroquel -) 12.5 mg PO BID [facility] Last Admin: 02/14/17 21:58 Dose: 12.5 mg - Objective Vital Signs: Vital Signs Temperature 97.5 F L 02/14/17 17:00 Pulse Rate 52 L 02/14/17 17:00 Respiratory Rate 20 02/14/17 17:00 Blood Pressure 124/78 02/14/17 17:00 O2 Sat by Pulse Oximetry (%) 94 L 02/14/17 09:00 Constitutional: Yes: Well Nourished, No Distress, Calm Eyes: Yes: WNL HENT: Yes: WNL Neck: Yes: WNL Cardiovascular: Yes: Regular Rate and Rhythm, S1, S2 Respiratory: Yes: Regular, CTA Bilaterally Gastrointestinal: Yes: Normal Bowel Sounds, Soft Genitourinary: Yes: WNL Musculoskeletal: Yes: WNL Extremities: Yes: WNL Edema: No Peripheral Pulses WNL: Yes Integumentary: Yes: WNL Neurological: Yes: Alert, Oriented ...Motor Strength: WNL Psychiatric: Yes: Alert, Oriented Labs: CBC, BMP 02/12/17 06:00 02/14/17 08:38 Problem List - Problems (1) Dementia Assessment/Plan: Has been on Seroquel 12.5 mg and appears much more alert and oriented without any behaviour problems. Code(s): F03.90 - UNSPECIFIED DEMENTIA WITHOUT BEHAVIORAL DISTURBANCE Qualifiers: Dementia type: Alzheimer's disease Alzheimer's disease onset: unspecified onset Dementia behavioral disturbance: with behavioral disturbance Qualified Code(s): G30.8 - Other Alzheimer's disease; F02.80 - Dementia in other diseases classified elsewhere without behavioral disturbance (2) Fall Code(s): W19.XXXA - UNSPECIFIED FALL, INITIAL ENCOUNTER Qualifiers: Encounter type: sequela Qualified Code(s): W19.XXXS - Unspecified fall , sequela (3) Altered mental status Assessment/Plan: Since admision has been more alert and does not have any neuro deficit Code(s): R41.82 - ALTERED MENTAL STATUS, UNSPECIFIED Qualifiers: Altered mental status type: unspecified Qualified Code(s): R41.82 - Altered mental status, unspecified (4) Edema of right lower extremity Code(s): R60.0 - LOCALIZED EDEMA (5) Hypertension Assessment/Plan: Being monitored to see if it was the cuse of possible syncope Code(s): I10 - ESSENTIAL (PRIMARY) HYPERTENSION (6) Osteoarthritis Code(s): M19.90 - UNSPECIFIED OSTEOARTHRITIS, UNSPECIFIED SITE (7) Left bundle branch block (LBBB) Assessment/Plan: LBBB is new and could just be age related Code(s): I44.7 - LEFT BUNDLE-BRANCH BLOCK, UNSPECIFIED Assessment/Plan Has been in and out of LBBB, no arrhythmias noted
[2017-02-15 07:55] LABS: BASOPHIL 0.6 % (0-2.0); EOSINOPHIL 3.6 % (0-4.5); MCH 29.8 pg (25.7-33.7); MCHC 33.1 g/dl (32.0-36.0); MEAN CELL VOLUME 89.8 fl (80-96); MEAN PLT VOLUME 8.8 fl (7.5-11.1); NEUTROPHILS 55.8 % (42.8-82.8); PLATELET COUNT 198 K/MM3 (134-434); RDW 13.8 % (11.6-15.6); WHITE BLOOD COUNT 5.3 K/mm3 (4.0-10.0)
[2017-02-15 09:01] LABS: ALBUMIN 3.1 g/dl (3.4-5.0); BILIRUBIN,TOTAL 0.5 mg/dL (0.2-1.0); CALCIUM 8.3 mg/dL (8.5-10.1); COCKROFT - GAULT 39.44; CREATININE 0.9 mg/dL (0.55-1.02)
--- NOTE | 2017-02-15 10:43 | PN ---
Progress Note (short form) - Note Progress Note: S: no cp sob palps dizzy; overall no complaints o: Vital Signs Period Temp Pulse Resp BP Sys/Rogel Pulse Ox Last 24 Hr 97.5 F-98.7 F 52-107 20-22 109-157/64-100 94-96 NAD, calm JVD flat, neck supple CTAB, nl effort rrr nl s1, s2 no mrg + bs soft nt nd ext without e/c/c aaox2 no jaundice, diaphoresis. Current Medications Generic Name Dose Route Start Last Admin Trade Name Aram PRN Reason Stop Dose Admin Memantine 5 mg 02/12/17 10:00 02/14/17 21:58 Namenda - PO 5 mg BID ZAHRA Administration Quetiapine Fumarate 12.5 mg 02/12/17 22:00 02/14/17 21:58 Seroquel - PO 12.5 mg BID ZAHRA Administration CBC, BMP 02/15/17 05:35 02/15/17 05:35 ekg: NSR, LBBB = new vs 09/2016 tele: sr, sinus tach with rate related bundle brunch block Echo here: nl lv/rv. 1 + MAC Echo 09/2016 ([facility]): nl LVEF, normal wall motion; nl RV; valves WNL Carotids 09/20: mild, nonob da a/p: 89 yo with h/o HTN, dementia, OA, here s/p fall. s/p unwitnessed fall: -apparently dtr arrived at pt's side immediately--was not unconscious at that time and no suspected LOC by family (per ER notes), though pt dementia confounding here -cannot definitively r/o fleeting syncope -more likely sec to weakness or acute balance deficit related to active infection -if brief syncope, was almost certainly vasovagal or orthostatic related to fever/infection, vol depleted (prerenal labs) -skeletal muscle cpk sec to fall (normal MB fraction); trop in intermediate range which is not c/w ACS -new LBBB noted on ecg and tele, seems to be rate related bundle. -echo, tele, ecg w/o etiology of fall/syncope fever (102.7): -ID w/u per dr pimentel -holding lasix HTN: -controlled -cont home meds for now -rec assess for orthostatic hypotension later, once infection/fever resolved, when pt starting to ambulate again can dc tele
[2017-02-15] MEDS: MEMANTINE HCL 5 MG TABLET (UD) PO SCH ×2 (11:24→21:40)
[2017-02-15] MEDS: QUEtiapine FUMARATE 25 MG TABLET (FP) PO SCH ×2 (11:24→21:40)
[2017-02-15] MEDS: amLODIPine BESYLATE 2.5 MG TABLET (FP) PO SCH ×2 (16:47→21:40)
--- NOTE | 2017-02-15 23:34 | PN ---
Progress Note, Physician History of Present Illness: Denies any chest pain, SOB or palpitations. - Current Medication List Current Medications: Active Medications Amlodipine Besylate (Norvasc -) 2.5 mg PO BID [facility] Last Admin: 02/15/17 21:40 Dose: 2.5 mg Memantine (Namenda -) 5 mg PO BID [facility] Last Admin: 02/15/17 21:40 Dose: 5 mg Quetiapine Fumarate (Seroquel -) 12.5 mg PO BID [facility] Last Admin: 02/15/17 21:40 Dose: 12.5 mg - Objective Vital Signs: Vital Signs Temperature 98.8 F 02/15/17 20:37 Pulse Rate 92 H 02/15/17 20:37 Respiratory Rate 20 02/15/17 20:37 Blood Pressure 168/88 02/15/17 20:37 O2 Sat by Pulse Oximetry (%) 96 02/15/17 20:38 Constitutional: Yes: No Distress, Calm Eyes: Yes: Conjunctiva Clear, EOM Intact HENT: Yes: WNL Neck: Yes: Supple Cardiovascular: Yes: Regular Rate and Rhythm, S1, S2 Respiratory: Yes: Regular, CTA Bilaterally Gastrointestinal: Yes: Normal Bowel Sounds, Soft Genitourinary: Yes: WNL Musculoskeletal: Yes: WNL Extremities: Yes: WNL Edema: No Peripheral Pulses WNL: Yes Integumentary: Yes: WNL Neurological: Yes: Alert, Oriented ...Motor Strength: WNL Psychiatric: Yes: Alert, Oriented Labs: CBC, BMP 02/15/17 05:35 02/15/17 05:35 Problem List - Problems (1) Dementia Assessment/Plan: Calm without agitation with Seroquel Code(s): F03.90 - UNSPECIFIED DEMENTIA WITHOUT BEHAVIORAL DISTURBANCE Qualifiers: Dementia type: Alzheimer's disease Alzheimer's disease onset: unspecified onset Dementia behavioral disturbance: with behavioral disturbance Qualified Code(s): G30.8 - Other Alzheimer's disease; F02.80 - Dementia in other diseases classified elsewhere without behavioral disturbance (2) Fall Assessment/Plan: as BP was recorded to be 97 once with Clonidine fall could have been due to hypotensive episode or syncope. Code(s): W19.XXXA - UNSPECIFIED FALL, INITIAL ENCOUNTER Qualifiers: Encounter type: sequela Qualified Code(s): W19.XXXS - Unspecified fall , sequela (3) Altered mental status Code(s): R41.82 - ALTERED MENTAL STATUS, UNSPECIFIED Qualifiers: Altered mental status type: unspecified Qualified Code(s): R41.82 - Altered mental status, unspecified (4) Edema of right lower extremity Code(s): R60.0 - LOCALIZED EDEMA (5) Hypertension Code(s): I10 - ESSENTIAL (PRIMARY) HYPERTENSION (6) Osteoarthritis Code(s): M19.90 - UNSPECIFIED OSTEOARTHRITIS, UNSPECIFIED SITE (7) Left bundle branch block (LBBB) Assessment/Plan: Has intermitent LBBB without any other arrhythmia. Code(s): I44.7 - LEFT BUNDLE-BRANCH BLOCK, UNSPECIFIED Assessment/Plan Will start on Amlodipine 2.5 0r 5 astolerated for BP control. Hasn't had any episode of agitation since admission.
[2017-02-16] MEDS: QUEtiapine FUMARATE 25 MG TABLET (FP) PO SCH ×2 (09:38→21:34)
[2017-02-16] MEDS: MEMANTINE HCL 5 MG TABLET (UD) PO SCH (09:39)
[2017-02-16] MEDS: amLODIPine BESYLATE 5 MG TABLET (FP) PO SCH (09:42)
--- NOTE | 2017-02-16 10:52 | PN ---
Progress Note (short form) - Note Progress Note: S: no cp sob palps dizzy; overall no complaints o: Vital Signs Period Temp Pulse Resp BP Sys/Rogel Pulse Ox Last 24 Hr 98 F-98.9 F 92-110 18-20 154-193/80-106 96-96 NAD, calm JVD flat, neck supple CTAB, nl effort rrr nl s1, s2 no mrg + bs soft nt nd ext without e/c/c aaox2 no jaundice, diaphoresis. Current Medications Generic Name Dose Route Start Last Admin Trade Name Aram PRN Reason Stop Dose Admin Amlodipine Besylate 5 mg 02/16/17 10:00 02/16/17 09:42 Norvasc - PO 5 mg DAILY [facility] Administration Memantine 5 mg 02/12/17 10:00 02/16/17 09:39 Namenda - PO 5 mg BID [facility] Administration Quetiapine Fumarate 12.5 mg 02/12/17 22:00 02/16/17 09:38 Seroquel - PO 12.5 mg BID ZAHRA Administration CBC, BMP 02/15/17 05:35 02/15/17 05:35 ekg: NSR, LBBB = new vs 09/2016 tele: sr, sinus tach with rate related bundle brunch block Echo here: nl lv/rv. 1 + MAC Echo 09/2016 ([facility]): nl LVEF, normal wall motion; nl RV; valves WNL Carotids 09/20: mild, nonob da a/p: 89 yo with h/o HTN, dementia, OA, here s/p fall. s/p unwitnessed fall: -apparently dtr arrived at pt's side immediately--was not unconscious at that time and no suspected LOC by family (per ER notes), though pt dementia confounding here -cannot definitively r/o fleeting syncope -more likely sec to weakness or acute balance deficit related to active infection -if brief syncope, was almost certainly vasovagal or orthostatic related to fever/infection, vol depleted (prerenal labs) -skeletal muscle cpk sec to fall (normal MB fraction); trop in intermediate range which is not c/w ACS -new LBBB noted on ecg and tele, seems to be rate related bundle. -echo, tele, ecg w/o etiology of fall/syncope fever (102.7): -ID w/u per dr pimentel -holding lasix HTN: -after clonidine stopped bp started to rise again. Now started on norvasc 2.5 with some improvement. Would maintain loose bp targets given advanced age and tendency toward sxs/side effects of meds. Would try to keep sbp<160. If needed would try norvasc 5 qd.
[2017-02-16] MEDS ORDERED: ACETAMINOPHEN 325 MG TABLET (FP) PO PRN (19:27)
--- NOTE | 2017-02-16 21:00 | PN ---
Progress Note, Physician History of Present Illness: Denies any chest pain, SOB, palpitations. Ambulating with walker with some help - Current Medication List Current Medications: Active Medications Acetaminophen (Tylenol -) 650 mg PO Q6H PRN PRN Reason: FEVER OR PAIN Amlodipine Besylate (Norvasc -) 5 mg PO DAILY [facility] Last Admin: 02/16/17 09:42 Dose: 5 mg Memantine (Namenda -) 10 mg PO BID [facility] Quetiapine Fumarate (Seroquel -) 12.5 mg PO BID [facility] Last Admin: 02/16/17 09:38 Dose: 12.5 mg - Objective Vital Signs: Vital Signs Temperature 98.8 F 02/16/17 19:00 Pulse Rate 100 H 02/16/17 19:00 Respiratory Rate 20 02/16/17 19:00 Blood Pressure 160/101 02/16/17 19:00 O2 Sat by Pulse Oximetry (%) 95 02/16/17 13:00 Constitutional: Yes: Well Nourished, No Distress, Calm Eyes: Yes: Conjunctiva Clear, EOM Intact HENT: Yes: WNL Neck: Yes: Supple Cardiovascular: Yes: Regular Rate and Rhythm, S1, S2 Respiratory: Yes: Regular, CTA Bilaterally Gastrointestinal: Yes: Normal Bowel Sounds, Soft Genitourinary: Yes: Incontinence Extremities: Yes: WNL Edema: No Peripheral Pulses WNL: Yes Integumentary: Yes: WNL Neurological: Yes: Alert, Oriented, Cran Nerves II-XII Intact ...Motor Strength: WNL Psychiatric: Yes: Alert, Oriented Labs: CBC, BMP 02/15/17 05:35 02/15/17 05:35 Problem List - Problems (1) Dementia Code(s): F03.90 - UNSPECIFIED DEMENTIA WITHOUT BEHAVIORAL DISTURBANCE Qualifiers: Dementia type: Alzheimer's disease Alzheimer's disease onset: unspecified onset Dementia behavioral disturbance: with behavioral disturbance Qualified Code(s): G30.8 - Other Alzheimer's disease; F02.80 - Dementia in other diseases classified elsewhere without behavioral disturbance (2) Fall Assessment/Plan: Since admission has improved progressively and now able to walk with walker with some help Code(s): W19.XXXA - UNSPECIFIED FALL, INITIAL ENCOUNTER Qualifiers: Encounter type: sequela Qualified Code(s): W19.XXXS - Unspecified fall , sequela (3) Altered mental status Assessment/Plan: Has been much more alert Code(s): R41.82 - ALTERED MENTAL STATUS, UNSPECIFIED Qualifiers: Altered mental status type: unspecified Qualified Code(s): R41.82 - Altered mental status, unspecified (4) Edema of right lower extremity Code(s): R60.0 - LOCALIZED EDEMA (5) Hypertension Assessment/Plan: Was switched to Amlodipine due to hypotensive episode with Clonidine Code(s): I10 - ESSENTIAL (PRIMARY) HYPERTENSION (6) Osteoarthritis Code(s): M19.90 - UNSPECIFIED OSTEOARTHRITIS, UNSPECIFIED SITE (7) Left bundle branch block (LBBB) Code(s): I44.7 - LEFT BUNDLE-BRANCH BLOCK, UNSPECIFIED Assessment/Plan As patient has 24 hour help at home will discharge home in AM with VNS
[2017-02-16] MEDS: MEMANTINE HCL 10 MG TABLET (FP) PO SCH (21:34)
[2017-02-17] MEDS: amLODIPine BESYLATE 5 MG TABLET (FP) PO SCH (09:48)
[2017-02-17] MEDS: QUEtiapine FUMARATE 25 MG TABLET (FP) PO SCH (09:48)
[2017-02-17] MEDS: MEMANTINE HCL 10 MG TABLET (FP) PO SCH (09:48)
[2017-02-17 18:19] VITALS: BP 139/89; PULSE 93; TEMP 98.7
--- NOTE | 2017-03-20 14:02 | DS ---
Physical Examination Vital Signs: Vital Signs Temperature 98.7 F 02/17/17 18:07 Pulse Rate 93 H 02/17/17 18:07 Respiratory Rate 20 02/17/17 18:07 Blood Pressure 139/89 02/17/17 18:07 O2 Sat by Pulse Oximetry (%) 95 02/17/17 11:00 Constitutional: Yes: Well Nourished, No Distress, Calm Eyes: Yes: WNL, Conjunctiva Clear HENT: Yes: WNL Neck: Yes: WNL, Supple, Trachea Midline Cardiovascular: Yes: Regular Rate and Rhythm, S1, S2 Respiratory: Yes: Regular, CTA Bilaterally Gastrointestinal: Yes: Normal Bowel Sounds, Soft Renal/: Yes: Incontinence Breast(s): Yes: WNL Musculoskeletal: Yes: WNL Extremities: Yes: WNL Edema: No Peripheral Pulses WNL: Yes Integumentary: Yes: WNL Neurological: Yes: Alert, Oriented ...Motor Strength: WNL Psychiatric: Yes: Alert, Oriented Labs: CBC, BMP 02/15/17 05:35 02/15/17 05:35 Discharge Summary Reason For Visit: ACUTE ELECTROCARDIOGRAPHY CHANGES/FALL Fall at home without Loss fo consciousness Procedures: Principal: CT Scan of BRAIN,. Xrays of pelvis , cervical spine Hospital Course: She was found at home on the floor without any LOC.As per family they noted that she was more confused.She is known to have Dementia and is being followed by the neurologist and has brandon managed with small dose of Seroquel and Exelon. She was brought to ED and found to have a low grade fever and slight leukocytosis. EKG showed a complete LBBB.She was monitored and serial EKGs were performed and did not show any change. Fever also subsided and all cultures were negative.She was started on PT and she was able to ambulate. CT of the Brain as well as all bone xrays were negative. Repeat EKG showed intermittent LBBB.As her BP dropped to 96 systolic Clonidine was discontinued. She was dischaged home with VNS and 24 hour aide. Condition: Stable - Instructions Diet, Activity, Other Instructions: F/U WITH DR. YANG IN 1 MONTH. TAKE SEROQUEL 12. 5 MG PO 2 X A DAY AND STOP TAKING CLONIDINE AND POTASSIUM. Referrals: Lobo Yang MD [Primary Care Provider] - Disposition: VNS/HOME HEALTH CARE - Home Medications Comprehensive Discharge Medication List: Ambulatory Orders Rivastigmine [Exelon] 1 each TD DAILY 02/26/13 Memantine HCl [Namenda Xr] 28 mg PO DAILY 10/03/16 Amlodipine Besylate [Norvasc -] 5 mg PO DAILY #90 tablet 02/17/17 Quetiapine Fumarate [Seroquel -] 12.5 mg PO BID tablet 02/17/17 Heparin - 5,000 unit SQ BID vial 02/26/17 Mirtazapine [Remeron -] 7.5 mg PO HS #30 tablet 02/26/17 Sennosides [Senna -] 2 tab PO HS PRN #0 tablet 02/26/17
== END 2017-02-17 18:21 | disposition home health service (06) | DRG 57 ==
LOC: JER 17:48 → JERBED 22:07 → J4W 02-13 00:17 → J5S 02-16 12:11
PROVIDERS: ADMIT Internal Medicine Hematology & Oncology; ATTEND Internal Medicine Hematology & Oncology
DX: G30.9 Alzheimer's disease, unspecified (principal); F02.81 Dementia in other diseases classified elsewhere, unspecified severity, with behavioral disturbance; I47.1 Supraventricular tachycardia; R29.6 Repeated falls; I44.7 Left bundle-branch block, unspecified; R41.82 Altered mental status, unspecified; R50.9 Fever, unspecified; M19.90 Unspecified osteoarthritis, unspecified site
CPT/HCPCS: 36415; 70450-TC; 70486-TC; 71010-TC; 72125-TC; 73523-TC; 73560-TC-RT; 80048; 80053; 81003; 81015; 82550; 82553; 83605; 83690; 83735; 84484; 85025; 87040; 87086; 87254; 87804; 93005; 93010; 93306-TC; 97116-GP; 97162-PG; 99285-25

== ENCOUNTER 2017-02-23 17:19 | Inpatient (IN) | payer OTHER, MEDICARE ==
[2017-02-23 17:24] VITALS: BMI 26.2
--- NOTE | 2017-02-23 18:57 | PDOC ---
History of Present Illness - General History Source: Patient Exam Limitations: No Limitations - History of Present Illness Initial Comments: 02/23/17 18:56 CHIEF COMPLAINT: Decreased appetite HISTORY OF PRESENT ILLNESS: This is an 89 year old female with a history of HTN , dementia, OA, and bilateral hip replacement recently admitted here from with UTI, fall, and EKG changes (ruled out for [place]) brought in to the ED by her daughter for decreased appetite. Daughter reports that since leaving the hospital, the patient has not been eating at all and has only been drinking minimal fluids. She seems to be having difficulty swallowing. She states that she feels "too bloated" to eat. She is unsure whether she has had a bowel movement recently. In addition, she has had generalized weakness (she normally ambulates independently with a walker), but has been unable to ambulate at all. Vital signs on arrival are unremarkable. PCP is Dr. Car. REVIEW OF SYSTEMS: GENERAL/CONSTITUTIONAL: Chills. Generalized weakness. No weight change. HEAD, EYES, EARS, NOSE AND THROAT: No change in vision. No ear pain or discharge. No sore throat. CARDIOVASCULAR: No chest pain or palpitations. RESPIRATORY: No cough, wheezing, or shortness of breath. GASTROINTESTINAL: Early satiety. No nausea, vomiting, diarrhea or constipation. GENITOURINARY: No dysuria, frequency, or change in urination. MUSCULOSKELETAL: No neck or back pain. No myalgias or arthralgias. SKIN: No rashes or lesions. NEUROLOGIC: No headache, vertigo, loss of consciousness, or loss of sensation. HEMATOLOGIC/LYMPHATIC: No anemia, easy bleeding, or history of blood clots. ALLERGIC/IMMUNOLOGIC: No hives or skin allergy. No latex allergy. PHYSICAL EXAM: GENERAL: The patient is awake, alert, oriented x 2, in no acute distress. ENT: Pupils equal, round and reactive to light, extraocular movements intact, sclera anicteric, conjunctiva clear. Neck supple. Mucous membranes dry. LUNGS: Clear to auscultation bilaterally. Normal excursion. No respiratory distress or use of accessory muscles. CV: RRR, S1/S2, no MRG. Cap refill < 2 sec. ABDOMEN: Soft, non-distended, non-tender. EXTREMITIES: Normal range of motion, 1+ pitting edema bilateral LE, chronic per family. NEUROLOGICAL: Normal speech, gait not observed. CN II-XII grossly intact. PSYCH: Normal mood, normal affect. SKIN: Warm, dry, normal turgor. <Marta Gonzales - Last Filed: 02/23/17 19:09> <Janessa Ospina - Last Filed: 02/23/17 21:00> - General Chief Complaint: Edema Stated Complaint: WEAK/BOTH LEGS SWOLLEN/LOSS OF APPETITE Time Seen by Provider: 02/23/17 17:49 Past History - Past Medical History Anemia: No Asthma: No Cancer: No Cardiac Disorders: No CVA: No COPD: No CHF: No Dementia: Yes Diabetes: No GI Disorders: Yes (CONSTIPATION) Disorders: No HTN: Yes Hypercholesterolemia: Yes Liver Disease: No Seizures: No Thyroid Disease: No Other medical history: RECENT UTI - Surgical History Abdominal Surgery: No Appendectomy: No Cardiac Surgery: No Cholecystectomy: No Lung Surgery: No Neurologic Surgery: No Orthopedic Surgery: Yes (RIGHT HIP THR 2012) - Psycho/Social/Smoking Cessation Hx Anxiety: No Suicidal Ideation: No Smoking History: Never smoked Have you smoked in the past 12 months: No If you are a former smoker, when did you quit?: 60 YRS Hx Alcohol Use: No Drug/Substance Use Hx: No Substance Use Type: None Hx Substance Use Treatment: No <Marta Gonzales - Last Filed: 02/23/17 19:09> <Janessa Ospina - Last Filed: 02/23/17 21:00> - Past Medical History Allergies/Adverse Reactions: Allergies Allergy/AdvReac Type Severity Reaction Status Date / Time nabumetone [From Relafen] Allergy Intermediate Rash Verified 02/23/17 17:24 celecoxib [From Celebrex] Allergy Itching Verified 02/23/17 17:24 lisinopril [From Zestril] Allergy Rash Verified 02/23/17 17:24 Home Medications: Ambulatory Orders Rivastigmine [Exelon] 1 each TD DAILY 02/26/13 Memantine HCl [Namenda Xr] 28 mg PO DAILY 10/03/16 Amlodipine Besylate [Norvasc -] 5 mg PO DAILY #90 tablet 02/17/17 Quetiapine Fumarate [Seroquel -] 12.5 mg PO BID tablet 02/17/17 *Physical Exam - Vital Signs Last Vital Signs Temp Pulse Resp BP Pulse Ox 97.7 F 85 18 137/83 98 02/23/17 17:21 02/23/17 17:21 02/23/17 17:21 02/23/17 17:21 02/23/17 17:21 <JanetMarta - Last Filed: 02/23/17 19:09> - Vital Signs Last Vital Signs Temp Pulse Resp BP Pulse Ox 98.7 F 91 H 18 138/74 97 02/23/17 20:21 02/23/17 20:21 02/23/17 20:21 02/23/17 20:21 02/23/17 20:21 <Janessa Ospina - Last Filed: 02/23/17 21:00> ED Treatment Course - LABORATORY CBC & Chemistry Diagram: 02/23/17 18:45 02/23/17 18:45 - RADIOLOGY Radiology Studies Ordered: Category Date Time Status CHEST X-RAY PORTABLE* [RAD] Stat Radiology 02/23/17 17:49 Taken <Marta Gonzales - Last Filed: 02/23/17 19:09> - LABORATORY CBC & Chemistry Diagram: 02/23/17 18:45 02/23/17 18:45 - ADDITIONAL ORDERS Additional order review: Laboratory Results 02/23/17 02/23/17 02/23/17 20:10 18:45 18:45 Sodium 139 Potassium 4.0 Chloride 102 Carbon Dioxide 26 Anion Gap 11 BUN 35 H D Creatinine 1.2 H D Creat Clearance w eGFR 42.30 Random Glucose 106 Calcium 9.3 Total Bilirubin 0.7 D AST 16 D ALT 20 D Alkaline Phosphatase 86 Creatine Kinase 49 Troponin I < 0.02 Total Protein 8.0 Albumin 3.6 Lipase 193 Urine Color Ltyellow Urine Appearance Clear Urine pH 7.0 Ur Specific [place] 1.016 Urine Protein Negative Urine Glucose (UA) Negative Urine Ketones 1+ H Urine Blood Negative Urine Nitrite Negative Urine Bilirubin Negative Urine Urobilinogen Negative Ur Leukocyte Esterase Trace H Urine RBC <1 Urine WBC 2 Ur Epithelial Cells Rare Hyaline Casts 1 Urine Mucus Rare 02/23/17 18:45 RBC 4.89 MCV 89.6 MCHC 32.9 RDW 13.7 MPV 9.0 Neutrophils % 68.3 D Lymphocytes % 24.1 D Monocytes % 6.6 Eosinophils % 0.5 D Basophils % 0.5 <Janessa Ospina - Last Filed: 02/23/17 21:00> Medical Decision Making - Medical Decision Making 02/23/17 19:07 A/P: 89 year old female with weakness and poor po intake/early satiety. 1. EKG 2. CXR 3. AXR to r/o obstruction 4. Basic labs 5. Straight cath UA/culture 6. Gentle IVF 7. Reassess <Marta Gonzales - Last Filed: 02/23/17 19:09> *DC/Admit/Observation/Transfer <Marta Gonzales - Last Filed: 02/23/17 19:09> - Discharge Dispostion Admit: Yes <Janessa Ospina - Last Filed: 02/23/17 21:00> Diagnosis at time of Disposition: Dehydration Dementia Qualifiers: Dementia type: unspecified type Dementia behavioral disturbance: without behavioral disturbance Qualified Code(s): F03.90 - Unspecified dementia without behavioral disturbance Failure to thrive Qualifiers: Failure to thrive age range: in adult Qualified Code(s): R62.7 - Adult failure to thrive - Discharge Dispostion Condition at time of disposition: Fair
[2017-02-23 19:03] LABS: BASOPHIL 0.5 % (0-2.0); EOSINOPHIL 0.5 % (0-4.5); MCH 29.5 pg (25.7-33.7); MCHC 32.9 g/dl (32.0-36.0); MEAN CELL VOLUME 89.6 fl (80-96); NEUTROPHILS 68.3 % (42.8-82.8); PLATELET COUNT 229 K/MM3 (134-434); RDW 13.7 % (11.6-15.6); WHITE BLOOD COUNT 5.6 K/mm3 (4.0-10.0)
--- NOTE | 2017-02-23 19:09 | PDOC ---
*Physical Exam - Vital Signs Last Vital Signs Temp Pulse Resp BP Pulse Ox 97.7 F 85 18 137/83 98 02/23/17 17:21 02/23/17 17:21 02/23/17 17:21 02/23/17 17:21 02/23/17 17:21 Heart Score/ECG Review #1 ECG reviewed & interpreted by me at: 19:09 02/23/17 19:09 Twelve-lead EKG was performed and reviewed by me. There is normal sinus rhythm with a normal rate. LAD, LVH, No ST elevations or depressions ED Treatment Course - LABORATORY CBC & Chemistry Diagram: 02/23/17 18:45 02/23/17 18:45 - ADDITIONAL ORDERS Additional order review: 02/23/17 18:45 RBC 4.89 MCV 89.6 MCHC 32.9 RDW 13.7 MPV 9.0 Neutrophils % 68.3 D Lymphocytes % 24.1 D Monocytes % 6.6 Eosinophils % 0.5 D Basophils % 0.5 Medical Decision Making - Medical Decision Making 02/24/17 17:17 Agree with plan by DANNY Gonzales Labs pending Pt signed out to zita Ospina *DC/Admit/Observation/Transfer Diagnosis at time of Disposition: Dementia, Dehydration, Failure to thrive - Discharge Dispostion Condition at time of disposition: Fair
[2017-02-23 19:23] LABS: ALBUMIN 3.6 g/dl (3.4-5.0); BILIRUBIN,TOTAL 0.7 mg/dL (0.2-1.0); CALCIUM 9.3 mg/dL (8.5-10.1); CREATININE 1.2 mg/dL (0.55-1.02)
[2017-02-23 19:24] LABS: TROPONIN I < 0.02 ng/ml (0.00-0.05)
[2017-02-23] MEDS: SODIUM CHLORIDE 1,000 ML IV SCH (19:34)
[2017-02-23 20:27] LABS: URINE APPEARANCE CLEAR; URINE BILIRUBIN NEGATIVE (NEGATIVE); URINE BLOOD NEGATIVE (NEGATIVE); URINE COLOR LTYELLOW; URINE GLUCOSE (UA) NEGATIVE (NEGATIVE); URINE KETONE 1+ (NEGATIVE); URINE NITRITE NEGATIVE (NEGATIVE); URINE PROTEIN NEGATIVE (NEGATIVE); URINE UROBILINOGEN NEGATIVE E.U./dl (0.2-1.0)
[2017-02-23 20:30] LABS: URINE LEUK ESTERASE TRACE (NEGATIVE)
[2017-02-23 20:35] LABS: URINE HYALINE CAST 1 /lpf; URINE MUCUS RARE; URINE RBC <1 /hpf (0-3); URINE WBC 2 /hpf (3-5)
--- NOTE | 2017-02-24 09:59 | EKG ---
Test Reason : Blood Pressure : / mmHG Vent. Rate : 083 BPM Atrial Rate : 083 BPM P-R Int : 188 ms QRS Dur : 094 ms QT Int : 410 ms P-R-T Axes : 035 -38 070 degrees QTc Int : 481 ms NORMAL SINUS RHYTHM LEFT AXIS DEVIATION MODERATE VOLTAGE CRITERIA FOR LVH, MAY BE NORMAL VARIANT WHEN COMPARED WITH ECG OF 11-FEB-2017 18:11, LEFT BUNDLE BRANCH BLOCK IS NO LONGER PRESENT Confirmed by ANIL ANDRADE MD ([id number]) on 02/24/2017 9:59:05 AM Referred By: Confirmed By:ANIL ANDRADE MD
[2017-02-24] MEDS: amLODIPine BESYLATE 5 MG TABLET (FP) PO SCH (10:00)
[2017-02-24] MEDS: HEPARIN NA (PORCINE) 5,000 UNITS/ML 1ML VIAL SQ SCH ×2 (10:00→21:06)
[2017-02-24] MEDS: RIVASTIGMINE 4.6 MG/24 HOURS TRANSDERMAL PATCH TD SCH (10:00)
[2017-02-24] MEDS: QUEtiapine FUMARATE 25 MG TABLET (FP) PO SCH ×2 (10:00→21:07)
--- NOTE | 2017-02-24 11:54 | HP ---
Admitting History and Physical - Primary Care Physician PCP: Lobo Rueda - Admission Chief Complaint: not eating well History of Present Illness: Pt 89 year old female with a history of HTN, dementia, OA, and bilateral hip replacement recently admitted here from with UTI, fall, and EKG changes (ruled out for [place]) brought in to the ED by her daughter for decreased appetite. Daughter reports that since leaving the hospital, the patient has not been eating at all and has only been drinking minimal fluids. . She states that she feels "too bloated" to eat. She is unsure whether she has had a bowel movement recently. In addition, she has had generalized weakness (she normally ambulates independently with a walker), but has been unable to ambulate at all. Pt found to be mildly dehydrated-- admitted to floor case was discussed with er physician last night chart reviewed Pt seen and examined today awake/ comfortable feels little weak no distress denies cp/ sob/ abd pain. denies urinary burning. Ate breakfast - about 60 percent per aid. PCP is Dr. Car.-- I am covering . 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 Cardiovascular: Yes: HTN Psych: Yes: Other (dementia) Musculoskeletal: Yes: Osteoarthritis - Past Surgical History Past Surgical History: Yes: Hysterectomy, Joint Replacement (bilateral hip rreplacement) - Smoking History Smoking history: Never smoked Have you smoked in the past 12 months: No If you are a former smoker, when did you quit?: 60 YRS - Alcohol/Substance Use Hx Alcohol Use: No History of Substance Use: reports: None - Social History ADL: Independent History of Recent Travel: No Home Medications - Allergies Allergies/Adverse Reactions: Allergies Allergy/AdvReac Type Severity Reaction Status Date / Time nabumetone [From Relafen] Allergy Intermediate Rash Verified 02/23/17 17:24 celecoxib [From Celebrex] Allergy Itching Verified 02/23/17 17:24 lisinopril [From Zestril] Allergy Rash Verified 02/23/17 17:24 - Home Medications Home Medications: Ambulatory Orders Rivastigmine [Exelon] 1 each TD DAILY 02/26/13 Memantine HCl [Namenda Xr] 28 mg PO DAILY 10/03/16 Amlodipine Besylate [Norvasc -] 5 mg PO DAILY #90 tablet 02/17/17 Quetiapine Fumarate [Seroquel -] 12.5 mg PO BID tablet 02/17/17 Review of Systems Unable to obtain ROS, reason: see [place] Physical Examination Vital Signs: Vital Signs Temperature 96.9 F L 02/24/17 02:11 Pulse Rate 74 02/24/17 02:11 Respiratory Rate 18 02/24/17 02:11 Blood Pressure 155/96 02/24/17 02:11 O2 Sat by Pulse Oximetry (%) 97 02/24/17 02:11 Constitutional: Yes: No Distress, Calm Eyes: Yes: Conjunctiva Clear, PERRL HENT: Yes: WNL Neck: Yes: Supple Cardiovascular: Yes: Regular Rate and Rhythm Respiratory: Yes: CTA Bilaterally Gastrointestinal: Yes: Normal Bowel Sounds, Soft Edema: No Neurological: Yes: Alert Imaging - Results Chest X-ray: Report Reviewed X-ray: Report Reviewed Problem List - Problems (1) Dehydration Code(s): E86.0 - DEHYDRATION (2) Dementia Code(s): F03.90 - UNSPECIFIED DEMENTIA WITHOUT BEHAVIORAL DISTURBANCE Qualifiers: Dementia type: unspecified type Dementia behavioral disturbance: without behavioral disturbance Qualified Code(s): F03.90 - Unspecified dementia without behavioral disturbance (3) Failure to thrive Code(s): MFR0407 - Qualifiers: Failure to thrive age range: in adult Qualified Code(s): R62.7 - Adult failure to thrive (4) Constipation Code(s): K59.00 - CONSTIPATION, UNSPECIFIED (5) Gall stone Code(s): K80.20 - CALCULUS OF GALLBLADDER W/O CHOLECYSTITIS W/O OBSTRUCTION Assessment/Plan Mild Hydration oob - chair physical therapy encourge eating stool softners gall stones are asymptomatic. will follow
[2017-02-24] MEDS ORDERED: SENNOSIDES 8.6MG TABLET (FP) PO PRN (12:01)
[2017-02-24] MEDS: DOCUSATE SODIUM 100 MG CAPSULE (FP) PO SCH ×2 (14:03→21:06)
[2017-02-24] MEDS: SODIUM CHLORIDE 1,000 ML IV SCH (17:26)
[2017-02-25] MEDS: DOCUSATE SODIUM 100 MG CAPSULE (FP) PO SCH ×3 (06:14→21:51)
[2017-02-25 08:36] LABS: BASOPHIL 0.6 % (0-2.0); EOSINOPHIL 1.7 % (0-4.5); MCH 29.7 pg (25.7-33.7); MCHC 33.3 g/dl (32.0-36.0); MEAN CELL VOLUME 89.2 fl (80-96); NEUTROPHILS 53.6 % (42.8-82.8); PLATELET COUNT 169 K/MM3 (134-434); RDW 13.8 % (11.6-15.6); WHITE BLOOD COUNT 5.5 K/mm3 (4.0-10.0)
[2017-02-25 09:02] LABS: COCKROFT - GAULT 37.6975
--- NOTE | 2017-02-25 10:06 | PN ---
Progress Note (short form) - Note Progress Note: Pt comfortable no distress feels ok but says dont feel like eating today Vital Signs Temp 96.9 F L 02/25/17 06:42 Pulse 88 02/25/17 06:42 Resp 18 02/25/17 06:42 BP 155/99 02/25/17 06:42 Pulse Ox 96 02/24/17 09:00 Intake & Output 02/24/17 02/24/17 02/25/17 11:59 23:59 11:59 Intake Total 652 1400 0 Balance 652 1400 0 Weight 138 lb 1 oz Intake: IV 332 800 Normal Saline - 1,000 ml 332 800 @ 83 mls/hr IV ASDIR [facility] Rx#:[id number] Oral 320 600 0 Other: Voiding Method Toilet Toilet # Unmeasured Voids Void 1 1 1 Bowel Movement No No No Weight Measurement Method Built in [facility] Active Medications Amlodipine Besylate (Norvasc -) 5 mg PO DAILY [facility] Last Admin: 02/24/17 10:00 Dose: 5 mg Docusate Sodium (Colace -) 100 mg PO TID [facility] Last Admin: 02/25/17 06:14 Dose: 100 mg Heparin Sodium (Porcine) (Heparin -) 5,000 unit SQ BID [facility] Last Admin: 02/24/17 21:06 Dose: 5,000 unit Sodium Chloride (Normal Saline -) 1,000 mls @ 83 mls/hr IV ASDIR [facility] Last Admin: 02/24/17 17:26 Dose: 83 mls/hr Non-Formulary Medication (Memantine Hcl [Namenda Xr]) 28 mg PO DAILY [facility] Quetiapine Fumarate (Seroquel -) 12.5 mg PO BID [facility] Last Admin: 02/24/17 21:07 Dose: 12.5 mg Rivastigmine (Exelon Patch 4.6mg/24 Hours -) 1 each TD Q24H [facility] Last Admin: 02/24/17 10:00 Dose: 1 each Senna (Senna -) 2 tab PO HS PRN PRN Reason: CONSTIPATION CBC, BMP 02/25/17 06:30 02/25/17 06:30 Physical Examination Constitutional: Yes: No Distress, Calm Eyes: Yes: Conjunctiva Clear, PERRL HENT: Yes: WNL Neck: Yes: Supple Cardiovascular: Yes: Regular Rate and Rhythm Respiratory: Yes: CTA Bilaterally Gastrointestinal: Yes: Normal Bowel Sounds, Soft Edema: No Neurological: Yes: Alert Imaging - Results Chest X-ray: Report Reviewed X-ray: Report Reviewed Problem List - Problems (1) Dehydration Code(s): E86.0 - DEHYDRATION (2) Dementia Code(s): F03.90 - UNSPECIFIED DEMENTIA WITHOUT BEHAVIORAL DISTURBANCE Qualifiers: Dementia type: unspecified type Dementia behavioral disturbance: without behavioral disturbance Qualified Code(s): F03.90 - Unspecified dementia without behavioral disturbance (3) Failure to thrive Code(s): BOC0626 - Qualifiers: Failure to thrive age range: in adult Qualified Code(s): R62.7 - Adult failure to thrive (4) Constipation Code(s): K59.00 - CONSTIPATION, UNSPECIFIED (5) Gall stone Code(s): K80.20 - CALCULUS OF GALLBLADDER W/O CHOLECYSTITIS W/O OBSTRUCTION Assessment/Plan Continue Mild Hydration oob - chair physical therapy encourge eating stool softners will discuss with family Anticipate d/c tomorrow-- home vs str will follow Problem List - Problems (1) Dehydration Code(s): E86.0 - DEHYDRATION (2) Dementia Code(s): F03.90 - UNSPECIFIED DEMENTIA WITHOUT BEHAVIORAL DISTURBANCE Qualifiers: Dementia type: unspecified type Dementia behavioral disturbance: without behavioral disturbance Qualified Code(s): F03.90 - Unspecified dementia without behavioral disturbance (3) Failure to thrive Code(s): IUD8080 - Qualifiers: Failure to thrive age range: in adult Qualified Code(s): R62.7 - Adult failure to thrive (4) Constipation Code(s): K59.00 - CONSTIPATION, UNSPECIFIED (5) Gall stone Code(s): K80.20 - CALCULUS OF GALLBLADDER W/O CHOLECYSTITIS W/O OBSTRUCTION
[2017-02-25] MEDS ORDERED: PT OWN MED DRAWER 7, Y5N ONE ×3 (10:22→16:05)
[2017-02-25] MEDS: SODIUM CHLORIDE 1,000 ML IV SCH ×2 (10:28→20:05)
[2017-02-25] MEDS: HEPARIN NA (PORCINE) 5,000 UNITS/ML 1ML VIAL SQ SCH ×2 (10:28→21:52)
[2017-02-25] MEDS: amLODIPine BESYLATE 5 MG TABLET (FP) PO SCH (10:29)
[2017-02-25] MEDS: RIVASTIGMINE 4.6 MG/24 HOURS TRANSDERMAL PATCH TD SCH (10:29)
[2017-02-25] MEDS: QUEtiapine FUMARATE 25 MG TABLET (FP) PO SCH ×2 (10:29→21:52)
[2017-02-25] MEDS: PATIENT'S OWN MEDICATION (NON-FORMULARY) (Memantine Hcl [Namenda Xr] 28 MG) PO SCH (16:02)
[2017-02-25] MEDS ORDERED: MIRTAZAPINE 15 MG TABLET (FP) PO SCH (22:00)
[2017-02-26] MEDS: DOCUSATE SODIUM 100 MG CAPSULE (FP) PO SCH ×2 (06:51→13:33)
--- NOTE | 2017-02-26 08:28 | DS ---
Physical Examination Vital Signs: Vital Signs Temperature 98 F 02/26/17 07:42 Pulse Rate 76 02/26/17 07:42 Respiratory Rate 20 02/26/17 07:42 Blood Pressure 142/90 02/26/17 07:42 O2 Sat by Pulse Oximetry (%) 95 02/25/17 21:00 Labs: CBC, BMP 02/25/17 06:30 02/25/17 06:30 Discharge Summary Reason For Visit: WEAK/BOTH LEGS SWOLLEN/LOSS OF APPETITE Current Active Problems Constipation (Acute) Dehydration (Acute) Dementia (Acute) Failure to thrive (Acute) Gall stone (Acute) Condition: Fair - Instructions Referrals: Lobo Rueda MD [Primary Care Provider] - - Home Medications Comprehensive Discharge Medication List: Ambulatory Orders Rivastigmine [Exelon] 1 each TD DAILY 02/26/13 Memantine HCl [Namenda Xr] 28 mg PO DAILY 10/03/16 Amlodipine Besylate [Norvasc -] 5 mg PO DAILY #90 tablet 02/17/17 Quetiapine Fumarate [Seroquel -] 12.5 mg PO BID tablet 02/17/17 Heparin - 5,000 unit SQ BID vial 02/26/17 Mirtazapine [Remeron -] 7.5 mg PO HS #30 tablet 02/26/17 Sennosides [Senna -] 2 tab PO HS PRN #0 tablet 02/26/17
[2017-02-26] MEDS ORDERED: PT OWN MED DRAWER 7, Y5N ONE ×2 (09:49→16:40)
[2017-02-26] MEDS: PATIENT'S OWN MEDICATION (NON-FORMULARY) (Memantine Hcl [Namenda Xr] 28 MG) PO SCH (09:58)
[2017-02-26] MEDS: amLODIPine BESYLATE 5 MG TABLET (FP) PO SCH (09:59)
[2017-02-26] MEDS: QUEtiapine FUMARATE 25 MG TABLET (FP) PO SCH (09:59)
[2017-02-26] MEDS: HEPARIN NA (PORCINE) 5,000 UNITS/ML 1ML VIAL SQ SCH (10:01)
[2017-02-26] MEDS: RIVASTIGMINE 4.6 MG/24 HOURS TRANSDERMAL PATCH TD SCH (10:02)
--- NOTE | 2017-02-26 10:05 | DS ---
Physical Examination Vital Signs: Vital Signs Temperature 98 F 02/26/17 07:42 Pulse Rate 76 02/26/17 07:42 Respiratory Rate 20 02/26/17 07:42 Blood Pressure 142/90 02/26/17 07:42 O2 Sat by Pulse Oximetry (%) 95 02/25/17 21:00 Labs: CBC, BMP 02/25/17 06:30 02/25/17 06:30 <Aisha Ngo - Last Filed: 02/26/17 10:05> Vital Signs: Vital Signs Temperature 98 F 02/26/17 07:42 Pulse Rate 76 02/26/17 07:42 Respiratory Rate 20 02/26/17 07:42 Blood Pressure 142/90 02/26/17 07:42 O2 Sat by Pulse Oximetry (%) 95 02/25/17 21:00 Findings/Remarks: Sleepy but arousable. Comfortable. No complaints offered. Remains pleasantly confused. Appetite remains poor. Constitutional: Yes: No Distress, Calm Eyes: Yes: Conjunctiva Clear Neck: Yes: Supple Cardiovascular: Yes: Regular Rate and Rhythm Respiratory: Yes: CTA Bilaterally Gastrointestinal: Yes: Soft Edema: No Labs: CBC, BMP 02/25/17 06:30 02/25/17 06:30 <Eladia Mariscal - Last Filed: 02/26/17 10:09> Discharge Summary Reason For Visit: WEAK/BOTH LEGS SWOLLEN/LOSS OF APPETITE Current Active Problems Constipation (Acute) Dehydration (Acute) Dementia (Acute) Failure to thrive (Acute) Gall stone (Acute) - Home Medications Comprehensive Discharge Medication List: Ambulatory Orders Rivastigmine [Exelon] 1 each TD DAILY 02/26/13 Memantine HCl [Namenda Xr] 28 mg PO DAILY 10/03/16 Amlodipine Besylate [Norvasc -] 5 mg PO DAILY #90 tablet 02/17/17 Quetiapine Fumarate [Seroquel -] 12.5 mg PO BID tablet 02/17/17 Heparin - 5,000 unit SQ BID vial 02/26/17 Mirtazapine [Remeron -] 7.5 mg PO HS #30 tablet 02/26/17 Sennosides [Senna -] 2 tab PO HS PRN #0 tablet 02/26/17 <Aisha Ngo - Last Filed: 02/26/17 10:05> Current Active Problems Constipation (Acute) Dehydration (Acute) Dementia (Acute) Failure to thrive (Acute) Gall stone (Acute) Hospital Course: Patient admitted from home due to dehydration and not eating well. Patient given fluids. Appetite remains on the low side. Started on Remeron. Patient is medically stable for discharge. Ideally, should go to [place] for short term rehab where they can monitor diet and adjust medications. Will discuss with family. Patient has no difficulty swallowing when eating. Her albumin level is also normal. Discussed with housing case manager also. Anticipate discharge today. Will follow. Meds reconciled. Documentation prepared by Eladia Mariscal, acting as a medical editor for Aisha Ngo MD - Home Medications Comprehensive Discharge Medication List: Ambulatory Orders Rivastigmine [Exelon] 1 each TD DAILY 02/26/13 Memantine HCl [Namenda Xr] 28 mg PO DAILY 10/03/16 Amlodipine Besylate [Norvasc -] 5 mg PO DAILY #90 tablet 02/17/17 Quetiapine Fumarate [Seroquel -] 12.5 mg PO BID tablet 02/17/17 Heparin - 5,000 unit SQ BID vial 02/26/17 Mirtazapine [Remeron -] 7.5 mg PO HS #30 tablet 02/26/17 Sennosides [Senna -] 2 tab PO HS PRN #0 tablet 02/26/17 <Eladia Mariscal - Last Filed: 02/26/17 10:09> Condition: Fair - Instructions Referrals: Lobo Rueda MD [Primary Care Provider] -
[2017-02-26] MEDS ORDERED: ACETAMINOPHEN 500 MG TABLET (FP) PO PRN (14:10)
[2017-02-26 15:16] VITALS: BP 130/85; PULSE 80; TEMP 98.1
== END 2017-02-26 16:47 | DRG 641 ==
LOC: JER 17:19 → JERBED 21:00 → J8W 02-24 02:06
PROVIDERS: ADMIT Internal Medicine; ATTEND Internal Medicine
DX: E86.0 Dehydration (principal); R62.7 Adult failure to thrive; I10 Essential (primary) hypertension; F03.90 Unspecified dementia, unspecified severity, without behavioral disturbance, psychotic disturbance, mood disturbance, and anxiety; K59.00 Constipation, unspecified; K80.20 Calculus of gallbladder without cholecystitis without obstruction
CPT/HCPCS: 36415; 71010-TC; 74020-TC; 80048; 80053; 81003; 81015; 82550; 83690; 84484; 85025; 87086; 87186; 93005; 93010; 97116-GP; 97161-GP; 99284-25; J1644

== ENCOUNTER 2017-09-04 12:48 | Emergency (ER) | payer OTHER, MEDICARE ==
[2017-09-04 13:03] VITALS: BMI 29.2
--- NOTE | 2017-09-04 15:45 | PDOC ---
History of Present Illness - General Chief Complaint: Injury Stated Complaint: FALL (ALTERED MENTAL STATUS) Time Seen by Provider: 09/04/17 15:32 - History of Present Illness Initial Comments: Pt 89 year old female with a history of HTN, dementia, OA, and bilateral hip replacement recently admitted here from with UTI + fall and 02/24 for FTT presenting to the ED by her son for another unwitnessed fall. Son reports that they found her down and slightly confused in the garage after finding her walker in the living room. she apparently wandered off without her walker and lost stability. Her children also report that she has been more somnolent over the last few days as well sleeping 15-16 hours per day and slightly less active overall. Daughter reports that since leaving the hospital, the patient has not been eating at all and has only been drinking minimal fluids. She states that she feels "too bloated" to eat. She is unsure whether she has had a bowel movement recently. In addition, she has had generalized weakness (she normally ambulates independently with a walker), but has been unable to ambulate at all. 09/04/17 15:40 Past History - Past Medical History Allergies/Adverse Reactions: Allergies Allergy/AdvReac Type Severity Reaction Status Date / Time celecoxib [From Celebrex] Allergy Intermediate Itching Verified 09/04/17 13:04 lisinopril [From Zestril] Allergy Intermediate Rash Verified 09/04/17 13:04 nabumetone [From Relafen] Allergy Intermediate Rash Verified 09/04/17 12:56 Home Medications: Ambulatory Orders Rivastigmine [Exelon] 1 each TD DAILY 02/26/13 Memantine HCl [Namenda Xr] 28 mg PO DAILY 10/03/16 Amlodipine Besylate [Norvasc -] 5 mg PO DAILY #90 tablet 02/17/17 Quetiapine Fumarate [Seroquel -] 12.5 mg PO BID tablet 02/17/17 Heparin - 5,000 unit SQ BID vial 02/26/17 Mirtazapine [Remeron -] 7.5 mg PO HS #30 tablet 02/26/17 Sennosides [Senna -] 2 tab PO HS PRN #0 tablet 02/26/17 Anemia: No Asthma: No Cancer: No Cardiac Disorders: No CVA: No COPD: No CHF: No Dementia: Yes Diabetes: No GI Disorders: Yes (CONSTIPATION) Disorders: No HTN: Yes Hypercholesterolemia: Yes Liver Disease: No Seizures: No Thyroid Disease: No - Surgical History Abdominal Surgery: No Appendectomy: No Cardiac Surgery: No Cholecystectomy: No Lung Surgery: No Neurologic Surgery: No Orthopedic Surgery: Yes (RIGHT HIP THR 2012) - Suicide/Smoking/Psychosocial Hx Smoking History: Never smoked Have you smoked in the past 12 months: No If you are a former smoker, when did you quit?: 60 YRS Hx Alcohol Use: No Drug/Substance Use Hx: No Substance Use Type: None Hx Substance Use Treatment: No Review of Systems - Review of Systems Constitutional: No: Chills, Diaphoresis, Fever HEENTM: No: Blurred Vision Respiratory: No: Cough, Shortness of Breath Cardiac (ROS): No: Chest Pain, Edema, Irregular Heart Rate ABD/GI: No: Constipated, Diarrhea, Nausea, Vomiting : No: Burning, Dysuria Musculoskeletal: No: Back Pain, Joint Pain *Physical Exam - Vital Signs Last Vital Signs Temp Pulse Resp BP Pulse Ox 98.1 F 90 22 146/88 99 09/04/17 12:56 09/04/17 12:56 09/04/17 12:56 09/04/17 12:56 09/04/17 12:56 - Physical Exam General Appearance: Yes: Nourished, Appropriately Dressed. No: Apparent Distress HEENT: positive: EOMI, Normal ENT Inspection, Normal Voice Neck: positive: Trachea midline, Normal Thyroid, Supple. negative: Tender, Rigid Respiratory/Chest: positive: Lungs Clear, Normal Breath Sounds. negative: Chest Tender, Respiratory Distress Cardiovascular: positive: Regular Rhythm, Regular Rate. negative: Murmur Gastrointestinal/Abdominal: positive: Normal Bowel Sounds, Flat, Soft. negative : Tender Musculoskeletal: positive: Normal Inspection, Other (Slightly wide gait on ambulation but able to walk 20 feet with minimal assistance.) Extremity: positive: Normal Inspection, Normal Range of Motion. negative: Tender Integumentary: positive: Normal Color, Dry, Warm Neurologic: positive: textile conservator II-XII NML intact, Alert, Normal Mood/Affect, Normal Response, Motor Strength 5/5. negative: Fully Oriented Heart Score/ECG Review - ECG Intrepretation Comment:: Old left axis deviation but new T wave inversions in lead II, V2-V4 09/04/17 19:06 ED Treatment Course - LABORATORY CBC & Chemistry Diagram: 09/04/17 16:14 09/04/17 16:14 Medical Decision Making - Medical Decision Making 89 year old female with moderate-severe dementia presenting after unwitnessed fall while she wasn't using her walker. CT head negative, and all labs WNL including UA. The patient's gait was slightly wide but roughly the same as previous according to the family. We walked 20 feet with minimal assistance which is consistent with her use of a walker at home. She does have new EKG changes as discussed above without chest pain or a Troponin leak. After a long discussion with her PCP Dr. Llamas, he will see her in the office tomorrow and believes that the EKG changes are because of some chronic hypertension and definitely not the cause of her fall as she is severely demented. Family is thankful for discharging the patient home as they feel she will be more comfortable in her own room. Will DC the patient home with return precautions and follow up with Dr. Llamas. 09/04/17 19:07 *DC/Admit/Observation/Transfer Diagnosis at time of Disposition: Fall Qualifiers: Encounter type: initial encounter Qualified Code(s): W19.XXXA - Unspecified fall, initial encounter; W19.XXXA - Unspecified fall, initial encounter - Discharge Dispostion Disposition: HOME Condition at time of disposition: Improved Admit: No - Referrals Referrals: Lobo Rueda MD [Primary Care Provider] - - Patient Instructions Additional Instructions: You were seen for a fall. Your head CT was negative, your chest X Ray was negative and your labs were all within normal limits. Your EKG was slightly different than previous but your primary care physician said he would review your records tomorrow. Please return if you have any new or worsening symptoms. Please follow up with Dr. Llamas tomorrow.
[2017-09-04 16:35] LABS: BASOPHIL 0.5 % (0-2.0); EOSINOPHIL 0.8 % (0-4.5); MCH 29.7 pg (25.7-33.7); MCHC 33.2 g/dl (32.0-36.0); MEAN CELL VOLUME 89.5 fl (80-96); MEAN PLT VOLUME 8.6 fl (7.5-11.1); NEUTROPHILS 62.9 % (42.8-82.8); PLATELET COUNT 179 K/MM3 (134-434); RDW 13.6 % (11.6-15.6); WHITE BLOOD COUNT 5.5 K/mm3 (4.0-10.0)
--- NOTE | 2017-09-04 16:45 | PDOC ---
Attending Attestation - Resident Resident Name: Gela Bailon - ED Attending Attestation I have performed the following: I have examined & evaluated the patient, The case was reviewed & discussed with the resident, I agree w/resident's findings & plan, Exceptions are as noted - Medical Decision Making 09/04/17 16:42 89 yo F with h/o recurrent Uti, dementia , HTN , here s/p unwitnessed fall. recent hip replacement. family is concerned of recent increase in somnolence. no new meds. no f/c found on floor in garage, had just seen her minutes before. differential mechanical fall, r/o electrolyte abnormality r/o infectio such as uti. ct head, CXR, trop labs ekg. reassess. <Flavia Mcguire - Last Filed: 09/04/17 16:41> - HPI HPI: 09/04/17 17:47 89 yo F with a significant past medical history of HTN, dementia, OA, bilateral THR, who presents to the emergency department s/p unwitnessed fall today. Pt walks with a walker at baseline. The son states they found the patients walker in the living room and found the patient on the floor in the garage. Pt denies head trauma. Son reports she has been sleeping more than baseline over the last few days. She was most recently admitted in February this year for a UTI and failure to thrive. This is not her first fall. Patient is at baseline mental status. Pt denies CP, SOB, MARS and dizziness. Pt denies F/C, n/v/d. - Physicial Exam PE: 09/04/17 17:47 GENERAL: Awake, alert, in no acute distress HEAD: No signs of trauma EYES: PERRLA, EOMI, sclera anicteric, conjunctiva clear ENT: Auricles normal inspection, nares patent, Moist mucosa NECK: Normal ROM, supple, no lymphadenopathy, JVD, or masses LUNGS: Breath sounds equal, clear to auscultation bilaterally. No wheezes, and no crackles HEART: Regular rate and rhythm, normal S1 and S2, no murmurs, rubs or gallops ABDOMEN: Soft, nontender, normoactive bowel sounds. No guarding, no rebound. No masses EXTREMITIES: Normal range of motion, no edema. No clubbing or cyanosis. No cords, erythema, or tenderness NEUROLOGICAL: Normal speech. (+) A&O x1, (+) Ambulating without pain, wide- based gait. SKIN: Warm, Dry, normal turgor, no rashes or lesions noted. <Sara Mancini - Last Filed: 09/04/17 19:15> Heart Score/ECG Review #1 General ECG Interpretation: Sinus Rhythm, Normal Rate (72), Normal Intervals, No acute ischemic changes (TWI III, AVF, new from february 23/2017) Compared to previous ECG there are: Changes noted (comare 02/23/17) <Flavia Mcguire - Last Filed: 09/04/17 16:41>
[2017-09-04 17:00] LABS: ALBUMIN 3.7 g/dl (3.4-5.0); ANION GAP 6 (8-16); BILIRUBIN,TOTAL 0.7 mg/dL (0.2-1.0); CALCIUM 8.8 mg/dL (8.5-10.1); CO2 27 mmol/L (21-32); CREATININE 0.9 mg/dL (0.55-1.02); GLUCOSE,RANDOM 92 mg/dL (74-106); SGOT/AST 19 U/L (15-37); SGPT/ALT 22 U/L (12-78); TOT PROT 7.2 g/dl (6.4-8.2)
[2017-09-04 17:00] LABS: URINE APPEARANCE CLEAR; URINE BILIRUBIN NEGATIVE (NEGATIVE); URINE BLOOD NEGATIVE (NEGATIVE); URINE COLOR STRAW; URINE GLUCOSE (UA) NEGATIVE (NEGATIVE); URINE KETONE NEGATIVE (NEGATIVE); URINE NITRITE NEGATIVE (NEGATIVE); URINE PROTEIN NEGATIVE (NEGATIVE); URINE UROBILINOGEN NEGATIVE mg/dL (0.2-1.0)
[2017-09-04 17:08] LABS: ALK PHOS 76 U/L (45-117); CPK 140 IU/L (26-192); THYROID STIMULATING HORMONE 0.66 uIU/ml (0.358-3.74); TROPONIN I 0.02 ng/ml (0.00-0.05)
[2017-09-04 19:48] VITALS: BP 144/85; PULSE 75; TEMP 97.9
[2017-09-04 20:49] LABS: URINE LEUK ESTERASE Negative (NEGATIVE)
--- NOTE | 2017-09-05 12:34 | EKG ---
Test Reason : Blood Pressure : / mmHG Vent. Rate : 071 BPM Atrial Rate : 071 BPM P-R Int : 194 ms QRS Dur : 092 ms QT Int : 424 ms P-R-T Axes : 040 -37 -10 degrees QTc Int : 460 ms NORMAL SINUS RHYTHM LEFT AXIS DEVIATION VOLTAGE CRITERIA FOR LEFT VENTRICULAR HYPERTROPHY T WAVE ABNORMALITY, CONSIDER ANTERIOR ISCHEMIA ABNORMAL ECG WHEN COMPARED WITH ECG OF 04-SEP-2017 16:21, NO SIGNIFICANT CHANGE WAS FOUND Confirmed by MARKUS GOLDBERG MD ([id number]) on 09/05/2017 12:34:23 PM Referred By: Confirmed By:MARKUS GOLDBERG MD
--- NOTE | 2017-09-05 12:37 | EKG ---
Test Reason : Blood Pressure : / mmHG Vent. Rate : 072 BPM Atrial Rate : 072 BPM P-R Int : 186 ms QRS Dur : 096 ms QT Int : 428 ms P-R-T Axes : 034 -37 -11 degrees QTc Int : 468 ms NORMAL SINUS RHYTHM LEFT AXIS DEVIATION VOLTAGE CRITERIA FOR LEFT VENTRICULAR HYPERTROPHY T WAVE ABNORMALITY, CONSIDER ANTERIOR ISCHEMIA ABNORMAL ECG WHEN COMPARED WITH ECG OF 23-FEB-2017 18:05, T WAVE INVERSION NOW EVIDENT IN INFERIOR LEADS T WAVE INVERSION NOW EVIDENT IN ANTERIOR LEADS NONSPECIFIC T WAVE ABNORMALITY NO LONGER EVIDENT IN LATERAL LEADS Confirmed by MARKUS GOLDBERG MD ([id number]) on 09/05/2017 12:36:50 PM Referred By: Confirmed By:MARKUS GOLDBERG MD
== END 2017-09-04 19:46 | disposition home or self-care (01) ==
LOC: JER 12:48
DX: R26.81 Unsteadiness on feet (principal); W18.39XA Other fall on same level, initial encounter; Y93.89 Activity, other specified; Y92.015 Private garage of single-family (private) house as the place of occurrence of the external cause; I10 Essential (primary) hypertension; F03.90 Unspecified dementia, unspecified severity, without behavioral disturbance, psychotic disturbance, mood disturbance, and anxiety; M19.90 Unspecified osteoarthritis, unspecified site; Z96.643 Presence of artificial hip joint, bilateral; Z91.81 History of falling; R26.89 Other abnormalities of gait and mobility; Z99.89 Dependence on other enabling machines and devices
CPT/HCPCS: 36415; 70450-TC; 71010-TC; 80053; 81003; 82550; 84443; 84484; 85025; 87040; 87086; 93005; 93010; 99282-25